=== PATIENT | female | born 1955 | race African-American/Black ===

== ENCOUNTER 2016-06-02 14:47 | Inpatient (IN) ==
[2016-06-02] MEDS ORDERED: SULFAMETHOX/TRIMETHOPRIM 800-160 MG TABLET PO STA (14:57)
[2016-06-02] MEDS ORDERED: CLINDAMYCIN INJ 900 MG in PREMIX 1 EACH IV STA (14:57)
[2016-06-02] MEDS ORDERED: methylPREDNISolone SOD SUC 125 MG/2 ML VIAL IV STA (14:57)
[2016-06-02] MEDS ORDERED: ACETAMINOPHEN/CODEINE 300-30 MG TABLET PO STA (14:57)
--- NOTE | 2016-06-02 15:02 | Emergency Department Note ---
Arrival - Arrival Chief Complaint: Extremity Problem Stated Complaint: bilateral leg pain ED Nursing Triage Note: c/o bilateral lower leg pain started about a year ago patient did not go to dialysis yesterday Mode of Arrival: Stretcher Limitations: No Limitations Source: Patient, Family Time Seen by Provider: 06/02/16 14:57 - History of Present Illness HPI Narrative: This 60-year-old black female chronic dialysis patient who dialyzes Wednesday presents with complaints of lower leg pain lesions with weeping ankles that are painful red and warm. The patient states this has been an evolving problem for several weeks and despite efforts to keep fluid off with dialysis, things have not gone as well as expected. The patient denies chills, fever, or chest pain but does complain of mild dyspnea with orthopnea and PND. She was to dialyze today but did not make it because of her legs. Onset (ago): week(s) (Patient presents several weeks post onset of symptoms) Allergies/Adverse Reactions: Allergies Allergy/AdvReac Type Severity Reaction Status Date / Time No Known Allergies Allergy Verified 03/27/16 17:01 Review of System - Review of System 12 point system: reviewed and no additional remarkable complaints except as stated - Review of System Constitutional: Present: as per HPI Respiratory: Present: as per HPI Cardiovascular: Present: as per HPI Musculoskeletal: Present: as per HPI Skin: Present: as per HPI Medical,Surgical,& Family Hx - Medical History Cardio: History of: Hypertension, Pacemaker Endocrine: History of: Diabetes Mellitus (NIDDM) Renal: History of: Dialysis, Renal Failure, Renal Problems (HD pt.) - Social History Smoking Status: Current every day smoker Exam Physical Examination: GENERAL: Chronically ill-appearing black female in no acute distress. HEENT: Normocephalic. No trauma. Moist mucous membranes. EOMI. PERRLA. ENT NML NECK: Supple. No adenopathy. JVD to the angle of the jaw at 45. CARDIAC: Regular. No murmurs. Heart rate 74 CHEST: Clear to auscultation. No respiratory distress. O2 sat 95% ABDOMEN: Soft. Nontender. Active bowel sounds. EXTREMITIES: No trauma. Normal ROM. No pedal edema. Right upper extremity fistula with good thrill. SKIN: No diaphoresis. No rash. Bilateral stasis dermatitis with cellulitis complicating vertical splits in the skin with purulent exudate and associated red tender swollen dripping palisades NEURO: Alert. Neuro intact. No focal deficits. Vital Signs: Vital Signs Temperature 99.3 F 06/02/16 14:54 Pulse Rate 65 06/02/16 16:45 Respiratory Rate 18 06/02/16 16:45 Blood Pressure 186/77 06/02/16 16:45 O2 Sat by Pulse Oximetry 95 06/02/16 14:48 Course - Reevaluation(s) Reevaluation #1: Discussed with patient need for hospitalization overnight for dialysis and further antibiotic therapy of stasis cellulitis and treatment of congestive failure with rule out of any cardiac ischemia - Consultations Consultation #1: Discussed with hospitalist service who will admit for further evaluation treatment. Results - Labs CBC & BMP: 06/02/16 15:04 06/02/16 15:04 Labs: I reviewed the laboratory noted the borderline white blood cell count and obviously elevated BUN and creatinine further complicated by mildly elevated potassium, bump in troponin and, and greatly elevated BNP - Diagnostic Findings Procedure: Chest x-ray: image reviewed by me, report reviewed by me ( Cardiomegaly with pulmonary venous hypertension and incipient failure, pacemaker noted), Ultrasound: image reviewed by me, report reviewed by me ( Lower extremity ultrasounds bilaterally reveal no DVT) Disposition Clinical Impression: Stasis cellulitis, Dialysis dependent renal failure, Congestive heart failure, Abnormal cardiac enzymes Case discussed with: patient, patient's family Disposition: Still a Patient Condition: Guarded Time of Disposition: 16:58
[2016-06-02] MEDS ORDERED: SULFAMETHOX/TRIMETHOPRIM 800-160 MG TABLET ONE (15:08)
[2016-06-02] MEDS ORDERED: methylPREDNISolone SOD SUC 125 MG/2 ML VIAL ONE (15:08)
[2016-06-02] MEDS ORDERED: ACETAMINOPHEN/CODEINE 300-30 MG TABLET ONE (15:08)
[2016-06-02] MEDS ORDERED: CLINDAMYCIN INJ 50 ML IV ONE (15:08)
[2016-06-02 15:21] LABS: Basophils # 0.1 10*3/uL (0.0-0.2); Basophils % 0.5 % (0.0-0.8); Eosinophils # 0.4 10*3/uL (0.0-0.87); Eosinophils % 3.5 % (0.00-10.9); Hemoglobin 10.3 GM/DL (12.0-16.0); Immature Granulocytes % 0.6 %; Immature Granulocytes Absolute 0.07 #; Lymphocytes # 0.9 10*3/uL (1.4-4.0); Lymphocytes % 7.7 % (21.3-54.2); Mean Corpuscular HGB Conc 32.2 GM/DL (32-36); Mean Corpuscular Hemoglobin 27 PG (27-34); Mean Corpuscular Volume 83.6 FL (87-102); Mean Platelet Volume 10.5 FL (9.6-12.0); Monocytes # 1.3 10*3/uL (0.11-0.8); Neutrophils # 9.1 10*3/uL (1.4-7.4); Neutrophils % 76.7 % (38.7-73.9); Platelet Count 144 T/CUMM (130-400); Red Blood Count 3.83 MC/CUMM (3.8-5.5); Red Cell Distribution Width 18.1 % (9.3-17.3); White Blood Count 11.9 T/CUMM (4-12)
[2016-06-02 15:33] LABS: INR 1.2; PT Patient Result 12.7 SECS
--- NOTE | 2016-06-02 15:48 | XRay Report ---
XR chest 1V portable Indication: Shortness of breath. Chest one view: Comparison 10/06/2013. Dialysis catheter has been removed. Cardiomegaly, pacemaker device, calcified atheromatous disease and elevated right hemidiaphragm are stable. No focal infiltrates are shown. There is increased pulmonary vascular congestion centrally, although not as severe as prior. Pleural spaces are clear. Impression: Mild CHF, not as severe as the previous exam. PROCEDURE INTERPRETED AT [facility] DEPARTMENT OF RADIOLOGY Final Report Signed by: Ángel Yang M.D.
[2016-06-02 15:56] LABS: Alanine Aminotransferase 22 U/L (13-56); Albumin 3.2 G/DL (3.4-5.0); Alkaline Phosphatase 78 U/L (45-117); Aspartate Amino Transferase 31 U/L (0-37); Blood Urea Nitrogen 87 MG/DL (7-18); Calcium 8.6 MG/DL (8.5-10.1); Glucose 74 MG/DL (74-106); Osmolality,Calculated 298.8 MOS/KG (273-304); Potassium 5.4 MMOL/L (3.5-5.1); Sodium 137 MMOL/L (136-145); Total Protein 7.6 G/DL (6.4-8.3)
--- NOTE | 2016-06-02 16:38 | Ultrasound Report ---
US venous doppler LE BI Indication: Leg pain. BILATERAL LOWER EXTREMITY VENOUS ULTRASOUND Comparison: None Findings: Graded grayscale compression, color Doppler and pulsed Doppler ultrasound evaluation of the venous structures performed. Normal compressibility, augmentation and color saturation is present within bilateral common femoral, superficial femoral, popliteal and proximal greater saphenous veins. Impression: No evidence of DVT either lower extremity. PROCEDURE INTERPRETED AT [facility] DEPARTMENT OF RADIOLOGY Final Report Signed by: Ángel Yang M.D.
[2016-06-02] MEDS ORDERED: ONDANSETRON 4 MG/2 ML VIAL IV PRN (17:05)
[2016-06-02] MEDS ORDERED: DOCUSATE SODIUM 100 MG CAPSULE PO PRN (17:05)
[2016-06-02] MEDS ORDERED: ACETAMINOPHEN 325 MG TABLET PO PRN (17:05)
--- NOTE | 2016-06-02 17:31 | Hospitalist History & Physical ---
Assessment and Plan (1) Acute renal failure Status: Acute Assessment and plan: Admit to monitored bed. Consult renal. Dialyze tomorrow. Monitor labs in am. Current Visit: Yes (2) Stasis dermatitis of both legs Status: Acute Assessment and plan: Doppler studies performed. Consult wound care. Current Visit: Yes (3) Elevated troponin Status: Acute Assessment and plan: Possibly secondary to kidney failure. Will repeat in am. Current Visit: Yes (4) Heart failure Status: Chronic Current Visit: Yes History of Present Illness Chief complaint: bilateral leg pain History of present illness: Ms. Robison is a 60 yr old black female patient that presented to the ED today with complaints of bilateral lower leg pain lesions and weeping ankles that are painful red and warm. Pt. also has area to right thigh that is reddened and warm. The pt. denies fever, chills, or chest pain but does complain of shortness of breath with activity. Pt reports that the issues with her legs have caused her to not be able to ambulate freely. Pt. resides alone and states that she doesnt have any help. Pt has a past medical history of CHF, renal failure, hypertension, diabetes, and a pacemaker. Pt. states she incorrectly told the MD that she dialyses T, Th, S - she actually goes MWF and she missed yesterday. BUN/creatinine are elevated 87/10.5. The patient will be admitted to the hospitalist program for further evaluation and treatment. Allergies Allergy/AdvReac Type Severity Reaction Status Date / Time No Known Allergies Allergy Verified 03/27/16 17:01 Medical,Surgical,& Family Hx - Medical History Cardio: History of: Hypertension, Pacemaker Endocrine: History of: Diabetes Mellitus (NIDDM) Renal: History of: Dialysis, Renal Failure, Renal Problems (HD pt.) - Social History Smoking Status: Current every day smoker - Constitutional Constitutional: Absent: chills, fever(s) - EENT Eyes: Present: loss of vision Ears: Absent: decreased hearing Nose, mouth and throat: Absent: headache(s) - Cardiovascular Cardiovascular: Absent: diaphoresis - Respiratory Respiratory: Present: dyspnea on exertion. Absent: cough - Gastrointestinal Gastrointestinal: Absent: abdominal pain, change in bowel habits, nausea, vomiting - Genitourinary Genitourinary: Absent: difficulty urinating - Musculoskeletal Musculoskeletal: Present: limited range of motion - Neurological Neurological: Present: confusion, convulsions. Absent: dizziness, numbness - Psychiatric Psychiatric: Present: confusion Exam - Constitutional Vitals: Period Temp Pulse Resp BP Sys/Spencer Pulse Ox Last 24 Hr 99.3 F-99.3 F 65-74 18-20 186-198/71-77 95 General appearance: normal weight, no acute distress, over weight - Head Head exam: Present: normal inspection, normocephalic - Eye Eye exam: Present: EOMI Pupils: Present: ISIDRO - Respiratory Respiratory exam: Present: clear to auscultation bilaterally - Cardiovascular Cardiovascular exam: Present: regular rate and rhythm, other (pt has pacemaker) - GI/Abdominal GI/Abdominal exam: Present: normal bowel sounds, soft, other - Neurological Exam Neurological exam: Present: alert, oriented X3, abnormal gait - Psychiatric Psychiatric exam: Present: normal affect, normal mood - Skin Skin exam: Present: normal color, warm, dry Results - Labs CBC & BMP: 06/02/16 15:04 06/02/16 15:04 Lab Results: I have reviewed the past 24 hour labs
[2016-06-02] MEDS ORDERED: GLUCAGON 1 MG VIAL IM PRN (17:35)
[2016-06-02] MEDS ORDERED: DEXTROSE 50% 25 GM/50 ML VIAL IV PRN (17:35)
[2016-06-02] MEDS: CLINDAMYCIN INJ 900 MG in PREMIX 1 EACH IV SCH (22:34)
[2016-06-02] MEDS: INSULIN LISPRO 100 UNIT/ML SUBCUT SCH (22:35)
[2016-06-03 03:35] LABS: Basophils % 0.1 % (0.0-0.8); Hematocrit 32.3 VOL% (35.7-47.0); Hemoglobin 10.2 GM/DL (12.0-16.0); Immature Granulocytes % 0.6 %; Immature Granulocytes Absolute 0.05 #; Lymphocytes # 0.4 10*3/uL (1.4-4.0); Lymphocytes % 4.1 % (21.3-54.2); Mean Corpuscular HGB Conc 31.6 GM/DL (32-36); Mean Corpuscular Hemoglobin 27 PG (27-34); Mean Corpuscular Volume 84.1 FL (87-102); Mean Platelet Volume 10.5 FL (9.6-12.0); Monocytes # 0.2 10*3/uL (0.11-0.8); Neutrophils % 93.2 % (38.7-73.9); Platelet Count 144 T/CUMM (130-400); Red Blood Count 3.84 MC/CUMM (3.8-5.5); Red Cell Distribution Width 18.4 % (9.3-17.3); White Blood Count 8.5 T/CUMM (4-12)
[2016-06-03 04:06] LABS: Lymphocytes 2 % (20-55); Segmented Neutrophils 97 % (50-85); Total Cells Counted 100
[2016-06-03 04:08] LABS: Platelet Estimate Adequate; Target Cells Few
[2016-06-03 04:13] LABS: Calcium 8.4 MG/DL (8.5-10.1); Osmolality,Calculated 304.8 MOS/KG (273-304); Potassium 5.9 MMOL/L (3.5-5.1); Risk Ratio 1.93; VLDL CHOLESTEROL 18.8 MG/DL
[2016-06-03 04:15] LABS: Troponin I Only 0.046 NG/ML (0.00-0.045)
--- NOTE | 2016-06-03 08:57 | Nephrology Consult Note ---
History of Present Illness Chief complaint: ESRD on CHD, c/o edema and SOB History of present illness: Ms. Robison is a 60 year old female with ESRD on CHD at [facility] on MWF. Last HD on Wednesday due to "I can't remember what days I dialyze, confused for a week". EDW 60kg via right upper arm AV fistula. Home Medications Medication Instructions Recorded Confirmed Type Aspirin EC Tab 325 mg PO DAILY 06/02/16 06/02/16 History Cetirizine HCl 10 mg PO DAILY 06/02/16 06/02/16 History Cetirizine Tab [ZyrTEC Tab] 10 mg PO DAILY 06/02/16 06/02/16 History Ferrous Sulfate 325 mg PO DAILY 06/02/16 06/02/16 History Folic Acid/Vit B Complex and C 0.8 mg PO DAILY 06/02/16 06/02/16 History [Nephro-Lyssa Tablet] Furosemide Tab [Lasix Tab] 40 mg PO BID 06/02/16 06/02/16 History Hydrocodone/Acetaminophen 1 each PO Q12HR 06/02/16 06/02/16 History [Hydrocodon-Acetaminophn 10-325] Metoclopramide HCl 5 mg PO ACHS 06/02/16 06/02/16 History Morphine Sulfate [Morphine Sulfate 15 mg PO Q12HR 06/02/16 06/02/16 History ER] Zolpidem Tartrate 5 mg PO BEDTIME PRN 06/02/16 06/02/16 History buPROPion HCl [Bupropion HCl Sr] 150 mg PO BID 06/02/16 06/02/16 History hydrALAZINE TAB [Apresoline Tab] 25 mg PO BID 06/02/16 06/02/16 History hydrOXYzine HCl [Hydroxyzine HCl] 25 mg PO BID PRN 06/02/16 06/02/16 History traZODone [Desyrel] 100 mg PO BEDTIME 06/02/16 06/02/16 History Allergies Allergy/AdvReac Type Severity Reaction Status Date / Time No Known Allergies Allergy Verified 03/27/16 17:01 Medical,Surgical,& Family Hx - Medical History Cardio: History of: Hypertension, Pacemaker Neurology: History of: Cerebrovascular Accident Endocrine: History of: Diabetes Mellitus (NIDDM) Renal: History of: Dialysis, Renal Failure, Renal Problems (HD pt.) - Social History Smoking Status: Current every day smoker Frequency of Alcohol Use: None Type of Drug Use: None Exam - Vital Signs Vital signs: Period Temp Pulse Resp BP Sys/Spencer Pulse Ox Last 24 Hr 96.7 F-99.9 F 60-97 16-20 162-187/58-79 90-97 - General Appearance General appearance: well-developed, chronically ill EENT: ATNC, PERRL, mucous membranes moist, hearing intact, vision intact Neck: no JVD, no carotid bruit Respiratory: no kyphosis, rales Cardiology: no murmurs, no rub, edema Gastrointestinal: normoactive bowel sounds, no tenderness, no guarding Integumentary: no rash, warm and dry Neurologic: no focal deficit, no asterixis, alert and oriented x3 Musculoskeletal: no deformities, no erythema Psychiatric: mood/affect appropriate, cooperative Results - Labs CBC & BMP: 06/03/16 03:14 06/03/16 03:14 Assessment and Plan (1) ESRD (end stage renal disease) on dialysis Problem details: volume overloaded due to noncompliance with hemodialysis. Status: Acute Assessment and plan: CHD today, 4 hrs, UF 4-5L as tolerated by hemodynamics. Current Visit: Yes
[2016-06-03] MEDS: INSULIN LISPRO 100 UNIT/ML SUBCUT SCH ×4 (09:01→21:02)
[2016-06-03] MEDS: PANTOPRAZOLE 40 MG TABLET PO SCH (09:01)
[2016-06-03] MEDS: CLINDAMYCIN INJ 900 MG in PREMIX 1 EACH IV SCH ×3 (09:02→23:45)
[2016-06-03 10:49] LABS: Hepatitis B Surface Ab Result Negative; Hepatitis B Surface Ag Quant < 0.10 Index; Hepatitis B Surface Ag Result Negative (Negative)
--- NOTE | 2016-06-03 15:32 | Hospitalist Progress Note ---
Assessment and Plan - Time spent with patient Time spent with patient: Greater than 30 minutes (1) ESRD (end stage renal disease) on dialysis Problem details: volume overloaded due to noncompliance with hemodialysis. Status: Acute Assessment and plan: Continue dialysis. Current Visit: Yes (2) Elevated troponin Status: Acute Assessment and plan: No chest pain. Likely due to end-stage renal disease. Current Visit: Yes (3) Cellulitis Status: Acute Assessment and plan: Continue antibiotics. Current Visit: Yes (4) Heart failure Status: Acute Assessment and plan: Stable. Current Visit: Yes Hospitalist: Subjective Interval history: Low-grade fever. Admitted with lower extremity cellulitis. End-stage renal disease. Currently she states she feels much better. Exam - Constitutional Vitals: Period Temp Pulse Resp BP Sys/Spencer Pulse Ox Last 24 Hr 96.7 F-99.9 F 60-97 16-20 159-187/58-79 90-98 General appearance: no acute distress - Head Head exam: Present: normocephalic, atraumatic - Eye Eye exam: Present: EOMI Pupils: Present: ISIDRO - ENT ENT exam: Present: normal exam - Neck Neck exam: Present: normal inspection - Respiratory Respiratory exam: Present: clear to auscultation bilaterally. Absent: rhonchi, wheezes - Cardiovascular Cardiovascular exam: Present: regular rate and rhythm. Absent: gallop, rubs, systolic murmur - GI/Abdominal GI/Abdominal exam: Present: normal bowel sounds, soft. Absent: distended, firm , guarding, tenderness, rebound - Extremities Exam Extremities exam: Present: other (Lower extremity reveals chronic changes with thickened skin. No overt evidence of cellulitis.). Absent: calf tenderness, edema Results - Labs CBC & BMP: 06/03/16 03:14 06/03/16 03:14 Lab Results: I have reviewed the past 24 hour labs
[2016-06-04] MEDS: CLINDAMYCIN INJ 900 MG in PREMIX 1 EACH IV SCH ×3 (06:42→23:16)
--- NOTE | 2016-06-04 08:29 | Nephrology Progress Note ---
Nephrology - PN: Subj Interval history: Pt states her breathing is much better after HD yesterday. SaO2 improved to 97% on RA afterward but now down again to low 90s this am. BLE edema improved. She denies pain. Exam (PN)-Nephrology - Vital Signs Vital signs: Period Temp Pulse Resp BP Sys/Spencer Pulse Ox Last 24 Hr 96.5 F-99.7 F 60-82 16-18 103-169/60-85 91-99 - General Appearance General appearance: well-developed, chronically ill EENT: ATNC, PERRL Neck: no JVD, no thyromegaly Respiratory: no kyphosis, clear Cardiology: no murmurs, no rub, edema Gastrointestinal: normoactive bowel sounds, no tenderness Integumentary: no rash, warm and dry Neurologic: no focal deficit, no asterixis, alert and oriented x3 Musculoskeletal: no deformities, no erythema Psychiatric: mood/affect appropriate, cooperative - Lab 06/03/16 03:14 06/03/16 03:14 Most recent lab results Calcium 8.4 MG/DL (8.5-10.1) L 06/03/16 03:14 Assessment and Plan (1) ESRD (end stage renal disease) on dialysis Problem details: volume overload improved but still up by exam. Status: Acute Assessment and plan: Pure ultrafiltration today. One hour, 1.5L UF. Current Visit: Yes
[2016-06-04] MEDS: INSULIN LISPRO 100 UNIT/ML SUBCUT SCH ×4 (08:41→23:16)
[2016-06-04] MEDS: PANTOPRAZOLE 40 MG TABLET PO SCH (08:42)
[2016-06-04 11:14] LABS: Apearance,Urine Slightly Hazy (Clear); Bilirubin,Urine Negative (Negative); Blood, Urine Moderate mg/dL (Negative); Glucose,Urine (UA) Negative (Negative); Ketones,Urine Negative (Negative); Mucus,Urine Occasional /LPF (Occasional); Nitrite,Urine Negative (Negative); Protein,Urine >=500 MG/DL; RBC,Urine 57 /HPF (0-4); Squamous Epithelial Cell,Urine Occasional /HPF (0-10); Urine Color Amber (Yellow); Urine Specific Gravity 1.017 (1.001-1.035); Urine Urobilinogen < 2.0 EU/DL (0.2-1.0); WBC,Urine 22 /HPF (0-6)
--- NOTE | 2016-06-04 13:25 | Hospitalist Progress Note ---
Assessment and Plan - Time spent with patient Time spent with patient: Greater than 30 minutes (1) ESRD (end stage renal disease) on dialysis Problem details: volume overload improved but still up by exam. Status: Acute Assessment and plan: Continue dialysis. Current Visit: Yes (2) Elevated troponin Status: Acute Assessment and plan: No chest pain. Likely due to end-stage renal disease. Current Visit: Yes (3) Cellulitis Status: Acute Assessment and plan: Continue antibiotics. Current Visit: Yes (4) Heart failure Status: Acute Assessment and plan: Stable. Current Visit: Yes Hospitalist: Subjective Interval history: No complaints. No overnight events. Exam - Constitutional Vitals: Period Temp Pulse Resp BP Sys/Spencer Pulse Ox Last 24 Hr 96.5 F-99.7 F 60-82 16-20 103-169/55-85 91-99 General appearance: no acute distress - Head Head exam: Present: normocephalic, atraumatic - Eye Eye exam: Present: EOMI Pupils: Present: ISIDRO - ENT ENT exam: Present: normal exam - Neck Neck exam: Present: normal inspection - Respiratory Respiratory exam: Present: clear to auscultation bilaterally. Absent: rhonchi, wheezes - Cardiovascular Cardiovascular exam: Present: regular rate and rhythm. Absent: gallop, rubs, systolic murmur - GI/Abdominal GI/Abdominal exam: Present: normal bowel sounds, soft. Absent: distended, firm , guarding, tenderness, rebound - Extremities Exam Extremities exam: Present: normal inspection. Absent: calf tenderness, edema Results - Labs CBC & BMP: 06/03/16 03:14 06/03/16 03:14 Lab Results: I have reviewed the past 24 hour labs
[2016-06-05] MEDS: CLINDAMYCIN INJ 900 MG in PREMIX 1 EACH IV SCH ×2 (06:37→16:20)
[2016-06-05 07:48] LABS: Basophils % 0.1 % (0.0-0.8); Eosinophils # 0.5 10*3/uL (0.0-0.87); Eosinophils % 6.1 % (0.00-10.9); Hematocrit 32.7 VOL% (35.7-47.0); Hemoglobin 10.8 GM/DL (12.0-16.0); Immature Granulocytes % 0.5 %; Immature Granulocytes Absolute 0.04 #; Lymphocytes # 0.7 10*3/uL (1.4-4.0); Lymphocytes % 9.6 % (21.3-54.2); Mean Corpuscular Hemoglobin 27 PG (27-34); Mean Platelet Volume 10.8 FL (9.6-12.0); Monocytes # 0.7 10*3/uL (0.11-0.8); Monocytes % 9.2 % (1.7-12.7); Neutrophils # 5.6 10*3/uL (1.4-7.4); Neutrophils % 74.5 % (38.7-73.9); Platelet Count 166 T/CUMM (130-400); Red Blood Count 3.99 MC/CUMM (3.8-5.5); Red Cell Distribution Width 17.5 % (9.3-17.3); White Blood Count 7.5 T/CUMM (4-12)
[2016-06-05 08:22] LABS: Calcium 7.5 MG/DL (8.5-10.1); Osmolality,Calculated 284.4 MOS/KG (273-304); Potassium 5.2 MMOL/L (3.5-5.1)
[2016-06-05] MEDS: INSULIN LISPRO 100 UNIT/ML SUBCUT SCH ×3 (08:34→17:35)
[2016-06-05] MEDS: PANTOPRAZOLE 40 MG TABLET PO SCH (08:49)
--- NOTE | 2016-06-05 09:16 | Nephrology Progress Note ---
Nephrology - PN: Subj Interval history: Pt sitting on side of bed smiling on am rounds. SaO2 100% on RA. Tolerated 1.5L pure ultrafiltration yesterday over one hour. Denies pain/SOB. Exam (PN)-Nephrology - Vital Signs Vital signs: Period Temp Pulse Resp BP Sys/Spencer Pulse Ox Last 24 Hr 96.8 F-98.1 F 63-74 18-20 151-183/66-88 90-100 - General Appearance General appearance: well-developed, well-nourished, chronically ill EENT: ATNC, PERRL, mucous membranes moist, hearing intact, vision intact Neck: no JVD, no carotid bruit Respiratory: no kyphosis, clear Cardiology: no murmurs, no rub, edema (improved) Gastrointestinal: normoactive bowel sounds, no tenderness Integumentary: no rash, warm and dry Neurologic: no focal deficit, no asterixis, alert and oriented x3 Musculoskeletal: no deformities, no erythema Psychiatric: mood/affect appropriate, cooperative - Lab 06/05/16 07:40 06/05/16 07:40 Most recent lab results Calcium 7.5 MG/DL (8.5-10.1) L 06/05/16 07:40 Assessment and Plan (1) ESRD (end stage renal disease) on dialysis Problem details: Euvolemic by exam. Status: Acute Assessment and plan: Routine CHD today. Establish new EDW and ensure this is relayed to Ms Robison' s outpt HD unit if she is discharged over the weekend. Stable for d/c after routine CHD today from nephrology standpoint with wound care. Current Visit: Yes
[2016-06-05 11:52] VITALS: BP 140/66
--- NOTE | 2016-06-05 12:50 | Discharge Summary ---
Hospital Course - Hospital Course Hospital Course: Ms. Robison was admitted for management of lower extremity cellulitis. She was initiated on clindamycin with adequate response. Wound care had evaluated the patient. Lower extremity Dopplers were negative. Nephrology was consulted for continuation of hemodialysis. By discharge she had met maximum benefit of hospitalization. I spent 37 minutes coordinating this discharge. - Time spent with patient Time with patient DS: Greater than 30 minutes Diagnosis - Discharge Diagnosis (1) ESRD (end stage renal disease) on dialysis Status: Acute (2) Elevated troponin Status: Acute (3) Cellulitis Status: Acute (4) Heart failure Status: Acute Discharge Plan - Discharge Data Disposition: Disch To Home/Self Care Condition at Discharge: Stable Discharge Diet: advance to your usual diet Activity: resume usual activities as tolerated - Discharge Medications New Clindamycin HCl [Clindamycin Cap] 600 mg PO Q8HR #30 capsule Continue buPROPion HCl [Bupropion HCl Sr] 150 mg PO BID Furosemide Tab [Lasix Tab] 40 mg PO BID Cetirizine Tab [ZyrTEC Tab] 10 mg PO DAILY Aspirin EC Tab 325 mg PO DAILY traZODone [Desyrel] 100 mg PO BEDTIME Cetirizine HCl 10 mg PO DAILY Morphine Sulfate [Morphine Sulfate ER] 15 mg PO Q12HR Folic Acid/Vit B Complex and C [Nephro-Lyssa Tablet] 0.8 mg PO DAILY Zolpidem Tartrate 5 mg PO BEDTIME PRN PRN Reason: Restlessness Metoclopramide HCl 5 mg PO ACHS Hydrocodone/Acetaminophen [Hydrocodon-Acetaminophn 10-325] 1 each PO Q12HR Ferrous Sulfate 325 mg PO DAILY hydrALAZINE TAB [Apresoline Tab] 25 mg PO BID hydrOXYzine HCl [Hydroxyzine HCl] 25 mg PO BID PRN PRN Reason: Itching - Follow Up or Referral - Forms/Instructions Exam - Constitutional Vitals: Period Temp Pulse Resp BP Sys/Spencer Pulse Ox Last 24 Hr 96.8 F-98.1 F 62-69 18-20 140-183/66-88 90-100 General appearance: normal weight, no acute distress - Head Head exam: Present: normal inspection, normocephalic - Eye Eye exam: Present: EOMI Pupils: Present: ISIDRO - ENT ENT exam: Present: normal exam - Neck Neck exam: Present: normal inspection - Respiratory Respiratory exam: Present: clear to auscultation bilaterally. Absent: accessory muscle use, prolonged expiratory phase, wheezes - Cardiovascular Cardiovascular exam: Present: regular rate and rhythm. Absent: bradycardia, irregular rhythm, systolic murmur - GI/Abdominal GI/Abdominal exam: Present: normal bowel sounds - Extremities Exam Extremities exam: Present: normal inspection Discharge Results Procedures and tests throughout hospitalization: Pending Orders 06/03/16 18:38 Stool Culture Routine stool [C. Diff Toxins A & B] Routine 06/04/16 Urine Culture Routine Labs on day of discharge: Labs from last 24 hours 06/05/16 06/05/16 06/05/16 11:33 07:58 07:40 WBC RBC Hgb Hct MCV MCH MCHC RDW Plt Count MPV Neut % (Auto) Lymph % (Auto) Lares % (Auto) Eos % (Auto) Baso % (Auto) Neut # (Auto) Lymph # (Auto) Lares # (Auto) Eos # (Auto) Baso # (Auto) Immature Gran % Nucleated RBC % Immature Gran # Nucleated RBCs # Sodium 133 L Potassium 5.2 H Chloride 99 Carbon Dioxide 23 Anion Gap 16.2 H BUN 66 H Creatinine 8.00 H GFR Calculation 6 BUN/Creatinine Ratio 8.00 Glucose 101 POC Glucose 94 113 H Calculated Osmolality 284.4 Calcium 7.5 L 06/05/16 06/04/16 06/04/16 07:40 19:34 16:02 WBC 7.5 RBC 3.99 Hgb 10.8 L Hct 32.7 L MCV 82.0 L MCH 27 MCHC 33.0 RDW 17.5 H Plt Count 166 MPV 10.8 Neut % (Auto) 74.5 H Lymph % (Auto) 9.6 L Lares % (Auto) 9.2 Eos % (Auto) 6.1 Baso % (Auto) 0.1 Neut # (Auto) 5.6 Lymph # (Auto) 0.7 L Lares # (Auto) 0.7 Eos # (Auto) 0.5 Baso # (Auto) 0.0 Immature Gran % 0.5 Nucleated RBC % 0.0 Immature Gran # 0.04 Nucleated RBCs # 0.00 Sodium Potassium Chloride Carbon Dioxide Anion Gap BUN Creatinine GFR Calculation BUN/Creatinine Ratio Glucose POC Glucose 121 H 111 H Calculated Osmolality Calcium Preliminary micro results at discharge 04/13/17 Unknown Urine Culture - Preliminary Urine,Voided No Growth at 24 hours. DS: Provider Date of admission: 06/02/16 17:01 Primary care physician: . No PCP Attending physician on admission: Renetta Gonsales MD Consults: 06/02/16 17:30 Consult to Physician [CONS] Routine Comment: Consulting Provider: Gordon Moctezuma Jr. 06/02/16 18:11 Consult to Pharmacy [CONS] Routine Reason for Pharmacy Consult: Adjust Meds Renal Funct 06/02/16 18:21 Consult to Wound Care - [place] [CONS] Routine Reason for Wound Care: Wound Care Management Discharging clinician: Renetta Gonsales MD Expected date of discharge: 06/05/16
--- NOTE | 2016-06-05 13:18 | Dialysis Note ---
Dialysis Note - Dialysis Note Patient seen on hemodialysis, she is tolerating this well will continue her treatment unchanged.
[2016-06-05] MEDS ORDERED: hydrALAZINE 25 MG TABLET PO SCH (15:50)
[2016-06-05] MEDS ORDERED: HEPARIN 10,000 UNIT/10 ML VIAL IV PRN (16:06)
== END 2016-06-05 19:09 | disposition home or self-care (01) | DRG 291 ==
LOC: EDUNIT# → EDBD → N.ED 14:47 → N.TELEN 17:01
PROVIDERS: ADMIT Internal Medicine; ATTEND Internal Medicine

== ENCOUNTER 2016-08-15 22:29 | Inpatient (IN) ==
[2016-08-15] MEDS ORDERED: FUROSEMIDE 40 MG/4 ML VIAL IV STA (23:07)
[2016-08-15] MEDS ORDERED: HYDROmorphone 2 MG/1 ML VIAL IV STA (23:07)
[2016-08-15] MEDS ORDERED: ONDANSETRON 4 MG/2 ML VIAL IV STA (23:07)
[2016-08-15 23:22] LABS: Basophils % 0.5 % (0.0-0.8); Eosinophils # 0.2 10*3/uL (0.0-0.87); Eosinophils % 2.7 % (0.00-10.9); Hematocrit 37.6 VOL% (35.7-47.0); Hemoglobin 11.4 GM/DL (12.0-16.0); Immature Granulocytes % 0.9 %; Immature Granulocytes Absolute 0.07 #; Lymphocytes # 0.9 10*3/uL (1.4-4.0); Lymphocytes % 10.7 % (21.3-54.2); Mean Corpuscular HGB Conc 30.3 GM/DL (32-36); Mean Corpuscular Hemoglobin 29 PG (27-34); Mean Platelet Volume 13.3 FL (9.6-12.0); Monocytes # 0.4 10*3/uL (0.11-0.8); Monocytes % 4.6 % (1.7-12.7); Neutrophils # 6.6 10*3/uL (1.4-7.4); Neutrophils % 80.6 % (38.7-73.9); Platelet Count 164 T/CUMM (130-400); White Blood Count 8.2 T/CUMM (4-12)
[2016-08-15] MEDS ORDERED: ONDANSETRON 4 MG/2 ML VIAL ONE (23:26)
[2016-08-15] MEDS ORDERED: HYDROmorphone 2 MG/1 ML VIAL ONE (23:27)
[2016-08-15 23:34] LABS: INR 1.1; PT Patient Result 11.6 SECS; Partial Thromboplastin Time 30.3 SECS (0-40)
[2016-08-15 23:41] LABS: Alanine Aminotransferase 20 U/L (13-56); Albumin 3.3 G/DL (3.4-5.0); Alkaline Phosphatase 128 U/L (45-117); Aspartate Amino Transferase 40 U/L (0-37); Blood Urea Nitrogen 31 MG/DL (7-18); Calcium 9.7 MG/DL (8.5-10.1); Glucose 172 MG/DL (74-106); Osmolality,Calculated 291.3 MOS/KG (273-304); Potassium 4.1 MMOL/L (3.5-5.1); Sodium 141 MMOL/L (136-145); Total Protein 7.7 G/DL (6.4-8.3)
[2016-08-15 23:44] LABS: Troponin I Only 0.059 NG/ML (0.00-0.045)
--- NOTE | 2016-08-15 23:54 | Emergency Department Note ---
ISeth Hilary, am scribing for, and in the presence of, Anita Carey DO 23: 00. IAurelio Debra, DO, personally performed the services described in this documentation, ascribed by Umm Ann in my presence, and it is both accurate and complete 354 . Arrival - Arrival Chief Complaint: Shortness of Breath Stated Complaint: SOB ED Nursing Triage Note: C/O Shortness of breath/edema to body. Onset 3-4 days ago. Pt reports that she thought she needed dialysis so she waited until she dialyzed yesterday, but still didn't get any relief of the shortness of breath or edema. Mode of Arrival: Wheelchair Limitations: No Limitations Source: Patient, RN Notes Reviewed - History of Present Illness HPI Narrative: Pt is a 60 y/o black female presenting to the ED with c/o SOB which onset 3-4 days ago. She confirms SOB and bloating in her abdomen but denies chest pain. No other complaints or problems stated in the ED. Onset (ago): day(s) Consistency: constant Severity: mild Severity scale (1-10): 1 Quality: bloating Date of Last Menstrual Period: PM Allergies/Adverse Reactions: Allergies Allergy/AdvReac Type Severity Reaction Status Date / Time No Known Allergies Allergy Verified 03/27/16 17:01 Home Medications: Home Medications Medication Instructions Recorded Confirmed Type Aspirin EC Tab 325 mg PO DAILY 06/02/16 08/16/16 History Cetirizine HCl 10 mg PO DAILY 06/02/16 08/16/16 History Cetirizine Tab [ZyrTEC Tab] 10 mg PO DAILY 06/02/16 08/16/16 History Ferrous Sulfate 325 mg PO DAILY 06/02/16 08/16/16 History Folic Acid/Vit B Complex and C 0.8 mg PO DAILY 06/02/16 08/16/16 History [Nephro-Lyssa Tablet] Furosemide Tab [Lasix Tab] 40 mg PO BID 06/02/16 08/16/16 History Hydrocodone/Acetaminophen 1 each PO Q12HR 06/02/16 08/16/16 History [Hydrocodon-Acetaminophn 10-325] Metoclopramide HCl 5 mg PO ACHS 06/02/16 08/16/16 History Morphine Sulfate [Morphine Sulfate 15 mg PO Q12HR 06/02/16 08/16/16 History ER] Zolpidem Tartrate 5 mg PO BEDTIME PRN 06/02/16 08/16/16 History buPROPion HCl [Bupropion HCl Sr] 150 mg PO BID 06/02/16 08/16/16 History hydrALAZINE TAB [Apresoline Tab] 25 mg PO BID 06/02/16 08/16/16 History hydrOXYzine HCl [Hydroxyzine HCl] 25 mg PO BID PRN 06/02/16 08/16/16 History traZODone [Desyrel] 100 mg PO BEDTIME 06/02/16 08/16/16 History Review of System - Review of System 12 point system: reviewed and no additional remarkable complaints except as stated - Review of System Constitutional: Absent: chills, fever Respiratory: Present: respiratory distress (SOB) Cardiovascular: Absent: chest pain Gastrointestinal: Present: abdominal pain Medical,Surgical,& Family Hx - Medical History Cardio: History of: Hypertension, Pacemaker Neurology: History of: Cerebrovascular Accident Endocrine: History of: Diabetes Mellitus (NIDDM) Renal: History of: Dialysis, Renal Failure, Renal Problems (HD pt.) - Social History Smoking Status: Current some day smoker Frequency of Alcohol Use: None Type of Drug Use: None Exam Vital Signs: Vital Signs Temperature 97.9 F 08/17/16 07:41 Pulse Rate 65 08/17/16 07:41 Respiratory Rate 16 08/17/16 07:41 Blood Pressure 146/63 08/17/16 07:41 O2 Sat by Pulse Oximetry 95 08/17/16 07:41 - General General appearance: alert, in no apparent distress - Head Head exam: Present: atraumatic, normocephalic - Eye Eye exam: Present: normal appearance, PERRL, EOMI - ENT ENT exam: Present: mucous membranes moist, TM's normal bilaterally. Absent: mucous membranes dry - Neck Neck exam: Present: full ROM, trachea midline. Absent: tenderness - Chest Chest inspection: Present: symmetric chest wall rise. Absent: tenderness - Respiratory Respiratory exam: Absent: normal lung sounds bilaterally (decreased breath sounds), respiratory distress - Cardiovascular Cardiovascular exam: Present: regular rate, normal rhythm, normal heart sounds, murmur (midsystolic ). Absent: rubs, gallop - Abdominal Exam Abdominal exam: Present: soft, tenderness (mild,diffused), normal bowel sounds. Absent: distention - Extremities Exam Extremities exam: Present: full ROM. Absent: tenderness - Back Exam Back exam: Present: full ROM. Absent: tenderness - Neurological Exam Neurological exam: Present: alert, oriented X3, CN II-XII intact. Absent: motor sensory deficit - Psychiatric Psychiatric exam: Present: normal affect, normal mood - Skin Skin exam: Present: warm, dry, intact, normal color. Absent: rash Results - Labs CBC & BMP: 08/17/16 03:21 08/17/16 03:21 Lab Results: I have reviewed the patients labs Labs: Laboratory Tests 08/15/16 08/15/16 08/15/16 23:05 23:05 23:05 WBC 8.2 RBC 4.00 Hgb 11.4 L MCHC 30.3 L Plt Count 164 MPV 13.3 H Neut % (Auto) 80.6 H Lymph % (Auto) 10.7 L Lymph # (Auto) 0.9 L INR 1.1 PT Patient/Control Mix 11.6 Circ Anticoag PTT 30.3 Sodium 141 Potassium 4.1 Chloride 101 Carbon Dioxide 32 BUN 31 H Creatinine 4.80 H Glucose 172 H AST 40 H Alkaline Phosphatase 128 H Troponin I 0.059 H B-Natriuretic Peptide Total Protein 7.7 Albumin 3.3 L Globulin 4.4 H Albumin/Globulin Ratio 0.7 L 08/15/16 23:05 WBC RBC Hgb MCHC Plt Count MPV Neut % (Auto) Lymph % (Auto) Lymph # (Auto) INR PT Patient/Control Mix Circ Anticoag PTT Sodium Potassium Chloride Carbon Dioxide BUN Creatinine Glucose AST Alkaline Phosphatase Troponin I B-Natriuretic Peptide > 5000 H Total Protein Albumin Globulin Albumin/Globulin Ratio - Diagnostic Findings Procedure: Chest x-ray: report reviewed by me (chf) Disposition Clinical Impression: Congestive heart failure Case discussed with: patient Disposition: Still a Patient
[2016-08-16] MEDS ORDERED: FUROSEMIDE 40 MG/4 ML VIAL IV STA (00:50)
[2016-08-16] MEDS ORDERED: hydrOXYzine HCL 25 MG TABLET PO PRN (02:27)
[2016-08-16] MEDS ORDERED: ACETAMINOPHEN 325 MG TABLET PO PRN (02:28)
[2016-08-16] MEDS ORDERED: GLUCAGON 1 MG VIAL IM PRN (02:28)
[2016-08-16] MEDS ORDERED: ONDANSETRON 4 MG/2 ML VIAL IV PRN (02:28)
[2016-08-16] MEDS ORDERED: DEXTROSE 50% 25 GM/50 ML VIAL IV PRN (02:28)
[2016-08-16] MEDS ORDERED: ALBUTEROL/IPRATROPIUM 3 ML NEB RESP TX PRN (02:32)
--- NOTE | 2016-08-16 02:35 | Hospitalist History & Physical ---
Assessment and Plan (1) Acute CHF Status: Acute Current Visit: Yes Qualifiers: Congestive heart failure type: unspecified congestive heart failure type Qualified Code(s): I50.9 - Heart failure, unspecified (2) Hypertension Status: Acute Current Visit: Yes Qualifiers: Hypertension type: essential hypertension Qualified Code(s): I10 - Essential (primary) hypertension (3) Type 2 diabetes mellitus Status: Acute Current Visit: Yes Qualifiers: Diabetes mellitus complication status: with unspecified complications Diabetes mellitus penitentiary insulin use: without penitentiary use Qualified Code( s): E11.8 - Type 2 diabetes mellitus with unspecified complications (4) ESRD (end stage renal disease) on dialysis Status: Chronic Assessment and plan: Plan: Chest x-ray consistent with cardiomegaly, and exam seem consistent with CHF. She has a history of tricuspid regurgitation. Will obtain echo to determine LV function Consult nephrology for dialysis on Wednesday Resume antihypertensives, may add additional medication as her blood pressure is suboptimal. Current Visit: Yes History of Present Illness Chief complaint: sob, worsening edema x2 days History of present illness: Ms. Robison is a 60 year old female with end-stage renal disease on hemodialysis Wednesday via right upper extremity AV fistula, hypertension, pacemaker, who is here with with a few days worsening SOB. Worse with exertion, she thought "pulling fluid off at dialysis," would make her feel better however she remains short of breath despite dialysis yesterday. She denies chest pain, fever, chills, cough, or hemoptysis. She makes very little if any urine. She also reports worsening bilateral lower extremity edema as well as abdominal bloating. She denies abdominal pain, constipation or diarrhea. Overall her symptoms have been constant, and worsening in intensity. Home Medications Medication Instructions Recorded Confirmed Type Aspirin EC Tab 325 mg PO DAILY 06/02/16 08/16/16 History Cetirizine HCl 10 mg PO DAILY 06/02/16 08/16/16 History Cetirizine Tab [ZyrTEC Tab] 10 mg PO DAILY 06/02/16 08/16/16 History Ferrous Sulfate 325 mg PO DAILY 06/02/16 08/16/16 History Folic Acid/Vit B Complex and C 0.8 mg PO DAILY 06/02/16 08/16/16 History [Nephro-Lyssa Tablet] Furosemide Tab [Lasix Tab] 40 mg PO BID 06/02/16 08/16/16 History Hydrocodone/Acetaminophen 1 each PO Q12HR 06/02/16 08/16/16 History [Hydrocodon-Acetaminophn 10-325] Metoclopramide HCl 5 mg PO ACHS 06/02/16 08/16/16 History Morphine Sulfate [Morphine Sulfate 15 mg PO Q12HR 06/02/16 08/16/16 History ER] Zolpidem Tartrate 5 mg PO BEDTIME PRN 06/02/16 08/16/16 History buPROPion HCl [Bupropion HCl Sr] 150 mg PO BID 06/02/16 08/16/16 History hydrALAZINE TAB [Apresoline Tab] 25 mg PO BID 06/02/16 08/16/16 History hydrOXYzine HCl [Hydroxyzine HCl] 25 mg PO BID PRN 06/02/16 08/16/16 History traZODone [Desyrel] 100 mg PO BEDTIME 06/02/16 08/16/16 History Clindamycin HCl [Clindamycin Cap] 600 mg PO Q8HR #30 capsule 06/05/16 08/16/16 Rx Allergies Allergy/AdvReac Type Severity Reaction Status Date / Time No Known Allergies Allergy Verified 03/27/16 17:01 Medical,Surgical,& Family Hx - Medical History Cardio: History of: Hypertension, Pacemaker Neurology: History of: Cerebrovascular Accident Endocrine: History of: Diabetes Mellitus (NIDDM) Renal: History of: Dialysis, Renal Failure - Surgical History Additional Surgical History: Right upper extremity AV fistula - Family History Family History: Reports;: Family Hypertension - Social History Smoking Status: Current some day smoker Have you smoked in the last 12 months: Yes Time spent discussing smoking cessation with patient: 3 to 10 minutes Frequency of Alcohol Use: None Type of Drug Use: None Marital Status: Unknown Functional capacity: independent ambulation Review of systems: A 12 point review of systems is negative except as specified in the HPI Exam - Constitutional Vitals: Period Temp Pulse Resp BP Sys/Spencer Pulse Ox Last 24 Hr 97.9 F-97.9 F 68-72 20-26 166-205/62-96 91-98 Exam: EXAM: CONSTITUTIONAL: non toxic, NAD HEENT: NC, AT, OP benign, ISIDRO, EOMI CV: RRR + 2/6 systolic murmur left upper sternal border RESP: clear B/L, no w/r/r GI: abd soft, NT, ND, +bowel sounds INTEGUMENTARY: no lesions or rash, right upper extremity AV fistula with good thrill and bruit EXTREMITIES: no c/c/e NEURO: no focal deficits PSYCH: unremarkable, A/O x3 Results - Labs CBC & BMP: 08/15/16 23:05 08/15/16 23:05 Lab Results: I have reviewed the past 24 hour labs - EKG EKG shows: sinus rhythm - Diagnostic Findings Procedure: Chest x-ray: image reviewed by me
[2016-08-16] MEDS: HEPARIN 5,000 UNIT/1 ML VIAL SUBCUT SCH ×3 (04:34→18:28)
[2016-08-16 06:06] LABS: Basophils # 0.1 10*3/uL (0.0-0.2); Basophils % 0.6 % (0.0-0.8); Eosinophils # 0.3 10*3/uL (0.0-0.87); Eosinophils % 2.9 % (0.00-10.9); Hematocrit 37.1 VOL% (35.7-47.0); Hemoglobin 11.2 GM/DL (12.0-16.0); Immature Granulocytes % 0.6 %; Immature Granulocytes Absolute 0.06 #; Lymphocytes % 10.2 % (21.3-54.2); Mean Corpuscular HGB Conc 30.2 GM/DL (32-36); Mean Corpuscular Hemoglobin 29 PG (27-34); Mean Corpuscular Volume 94.9 FL (87-102); Mean Platelet Volume 12.2 FL (9.6-12.0); Monocytes # 0.5 10*3/uL (0.11-0.8); Monocytes % 5.1 % (1.7-12.7); Neutrophils # 8.1 10*3/uL (1.4-7.4); Neutrophils % 80.6 % (38.7-73.9); Platelet Count 138 T/CUMM (130-400); Red Blood Count 3.91 MC/CUMM (3.8-5.5); Red Cell Distribution Width 16.3 % (9.3-17.3)
[2016-08-16 06:14] LABS: Bilirubin,Total 1.2 MG/DL (0.2-1.0); Calcium 8.9 MG/DL (8.5-10.1); Osmolality,Calculated 289.4 MOS/KG (273-304); Potassium 4.6 MMOL/L (3.5-5.1); Total Protein 7.1 G/DL (6.4-8.3)
[2016-08-16] MEDS: MULTIVITAMIN (BEROCCA) TABLET PO SCH (08:41)
[2016-08-16] MEDS: MORPHINE ER 15 MG TABLET PO SCH ×2 (08:42→20:25)
[2016-08-16] MEDS: buPROPion SR 150 MG TABLET PO SCH ×2 (08:42→20:24)
[2016-08-16] MEDS: ASPIRIN EC 325 MG TABLET PO SCH (08:43)
[2016-08-16] MEDS: hydrALAZINE 25 MG TABLET PO SCH ×2 (08:43→20:25)
[2016-08-16] MEDS: METOCLOPRAMIDE 5 MG TABLET PO SCH ×4 (08:43→20:24)
[2016-08-16] MEDS: CETIRIZINE 10 MG TABLET PO SCH (08:43)
[2016-08-16] MEDS: FERROUS SULFATE 325 MG TABLET PO SCH (08:43)
[2016-08-16] MEDS: INSULIN REGULAR 100 UNIT/ML SUBCUT SCH ×4 (08:44→20:48)
[2016-08-16] MEDS: PANTOPRAZOLE 40 MG TABLET PO SCH (08:44)
--- NOTE | 2016-08-16 08:45 | EKG Report ---
Stationary ECG Study [facility] ER Test Date: 08/15/2016 10:39:02 PM Pat Name: DARREL LORENZO Department: Room: 535 Gender: F Fish [employer]er: : 1955 Requested by: Anita Carey Order Number: [id number] Reading MD: YUDITH VALE Intervals [place] Rate: 71 P: -34 IN: 171 QRS: 108 QRSD: 85 T: -29 QT: 363 QTc: 386 Interpretive Statements SINUS RHYTHM RIGHT AXIS DEVIATION LOW QRS VOLTAGE IN CHEST LEADS SEPTAL INFARCT, UNDETERMINED AGE Electronically Signed On 08-16-16 10:46:24 CDT by YUDITH VALE [email or web address]
--- NOTE | 2016-08-16 09:04 | XRay Report ---
Portable chest Date: 08/15/2016 Clinical history: Shortness of breath Comparison: 06/02/2016 Technique: Portable AP sitting chest Findings: Progressive cardiomegaly with the heart having a globular configuration. The pulmonary vasculature is more prominent with progressive parenchymal findings. Left subclavian atrioventricular permanent pacemaker. Degenerative changes are noted. Impression: The heart is larger in size with a globular configuration which can be seen with cardiomyopathy or pericardial effusion. Mild CHF. Left subclavian atrioventricular permanent pacemaker. PROCEDURE INTERPRETED AT [facility] DEPARTMENT OF RADIOLOGY Final Report Signed by: Dr. Raissa Fierro
--- NOTE | 2016-08-16 09:19 | XRay Report ---
Portable chest Date: 08/16/2016 Clinical history: Shortness of breath Comparison: 08/15/2016 Technique: Portable AP sitting chest Findings: Persistent cardiomegaly with left subclavian atrioventricular permanent pacemaker. Minimally reduced parenchymal findings. Persistent relative elevation of the right hemidiaphragm with degenerative changes. Post operative findings in the right axilla. Impression: Persistent cardiomegaly with left subclavian atrioventricular permanent pacemaker. Minimally improved mild CHF. PROCEDURE INTERPRETED AT [facility] DEPARTMENT OF RADIOLOGY Final Report Signed by: Dr. Raissa Fierro
[2016-08-16] MEDS ORDERED: LACTULOSE 20 GM/30 ML UDCUP PO PRN (10:02)
[2016-08-16] MEDS ORDERED: methylPREDNISolone SOD SUC 40 MG/1 ML VIAL ONE (11:24)
[2016-08-16] MEDS ORDERED: MORPHINE 2 MG/1 ML SYRINGE ONE (11:25)
[2016-08-16] MEDS ORDERED: FUROSEMIDE 40 MG/4 ML VIAL ONE (11:25)
--- NOTE | 2016-08-16 11:54 | ECHO Report ---
Ju Robison Exam Date: 08/16/2016 10:10 Referring Physician: Technologist: Randi Dial Age: 60 Ht (in): 64 Wt (lb): 165 Gender: F Exam Location: [facility] Echo Indications: DM, HTN, ESRD, CHF, SOB, elevated troponin, acute renal failure BP: 140 / 80 HR: 72 Rhythm: Sinus Technical Quality: good IMPRESSIONS Left ventricular ejection fraction is estimated at 50 %. Mild- moderate concentric left ventricular hypertrophy with Grade 2 diastolic dysfunction. There is paradoxical movement of the interventricular septum which may be due to the paced rhythm. Tricuspid regurgitation velocities suggest a RVSP of 46 mmHg. Three chamber cardiac enlargement MEASUREMENTS (Male / Female) Normal Values 2D ECHO LV Diastolic Diameter PLAX 3.1 cm 4.2 - 5.9 / 3.9 - 5.3 cm LV Systolic Diameter PLAX 1.7 cm LV Fractional Shortening PLAX 43.3 % IVS Diastolic Thickness 1.8 cm 0.6 - 1.0 / 0.6 - 0.9 cm LVPW Diastolic Thickness 1.2 cm 0.6 - 1.0 / 0.6 - 0.9 cm RV Internal Dim ED PLAX 3.1 cm Aortic Root Diameter 2.7 cm LA Systolic Diameter LX 4.2 cm 3.0 - 4.0 / 2.7 - 3.8 cm DOPPLER TR Peak Velocity 339.0 cm/s TR Peak Gradient 46.0 mmHg FINDINGS Left Ventricle Normal left ventricular cavity size. Mild- moderate concentric left ventricular hypertrophy with Grade 2 diastolic dysfunction. Left ventricular ejection fraction is estimated at 50 %. There is paradoxical movement of the interventricular septum which may be due to the paced rhythm. Right Ventricle There is right ventricular enlargement. There is flattening of the ventricular septum with both systole and diastole suggesting right- sided volume and pressure overload. There is a pacing wire seen in the right ventricle Right Atrium The right atrium is mildly enlarged. Left Atrium Moderately increased left atrial size. Mitral Valve Mild mitral valve sclerosis. Moderate mitral valve regurgitation. There is mild posterior mitral and calcification Aortic Valve Mild aortic valve sclerosis. Tricuspid Valve Morphologically normal tricuspid valve. Moderate tricuspid valve regurgitation. Tricuspid regurgitation velocities suggest a RVSP of 46 mmHg. Pulmonic Valve Morphologically normal pulmonic valve. Trace pulmonary valve regurgitation. Pericardium Trivial pericardial effusion. Aorta Normal size aortic root and proximal ascending aorta. Mary Rosas (Electronically Signed) Final Date: 16 August 2016 11:52
[2016-08-16] MEDS: POLYETHYLENE GLYCOL POWDER 17 GM PACK PO SCH (13:14)
--- NOTE | 2016-08-16 13:39 | Nephrology Consult Note ---
History of Present Illness Chief complaint: ESRD, S OB History of present illness: Ms. Robison is a 60 year old female with ESRD. She dialyzed on Wednesday. She reports a several day history of BEATTY. No chest pain. No fever or sputum production Home Medications Medication Instructions Recorded Confirmed Type Aspirin EC Tab 325 mg PO DAILY 06/02/16 08/16/16 History Cetirizine HCl 10 mg PO DAILY 06/02/16 08/16/16 History Cetirizine Tab [ZyrTEC Tab] 10 mg PO DAILY 06/02/16 08/16/16 History Ferrous Sulfate 325 mg PO DAILY 06/02/16 08/16/16 History Folic Acid/Vit B Complex and C 0.8 mg PO DAILY 06/02/16 08/16/16 History [Nephro-Lyssa Tablet] Furosemide Tab [Lasix Tab] 40 mg PO BID 06/02/16 08/16/16 History Hydrocodone/Acetaminophen 1 each PO Q12HR 06/02/16 08/16/16 History [Hydrocodon-Acetaminophn 10-325] Metoclopramide HCl 5 mg PO ACHS 06/02/16 08/16/16 History Morphine Sulfate [Morphine Sulfate 15 mg PO Q12HR 06/02/16 08/16/16 History ER] Zolpidem Tartrate 5 mg PO BEDTIME PRN 06/02/16 08/16/16 History buPROPion HCl [Bupropion HCl Sr] 150 mg PO BID 06/02/16 08/16/16 History hydrALAZINE TAB [Apresoline Tab] 25 mg PO BID 06/02/16 08/16/16 History hydrOXYzine HCl [Hydroxyzine HCl] 25 mg PO BID PRN 06/02/16 08/16/16 History traZODone [Desyrel] 100 mg PO BEDTIME 06/02/16 08/16/16 History Clindamycin HCl [Clindamycin Cap] 600 mg PO Q8HR #30 capsule 06/05/16 08/16/16 Rx Allergies Allergy/AdvReac Type Severity Reaction Status Date / Time No Known Allergies Allergy Verified 03/27/16 17:01 Medical,Surgical,& Family Hx - Medical History Cardio: History of: Hypertension, Pacemaker Psychological: History of: Depression Neurology: History of: Cerebrovascular Accident, Migraine HEENT: History of: Ear Problem Endocrine: History of: Diabetes Mellitus (NIDDM) Respiratory: History of: Asthma, Pneumonia Renal: History of: Dialysis, Renal Failure, Renal Problems (HD pt.) Gastrointestinal: History of: Hemorrhoids Musculoskeletal: History of: Back/Neck Problems Hematology: No history of: Blood Transfusion Reaction - Surgical History Cardiac Surgeries: Sugical HX of: Cardiac Catheterization Neurologic Surgeries: Patient denies: Neurologic Surgery Abdominal Surgeries: Patient denies: Abdominal Surgery Reproductive Surgeries: Patient denies;: Gynecologic Surgery Orthopedic Surgeries: Surgical HX of;: Implanted Devices (pacemaker) - Family History Family History: Reports;: Family Cancer (dad), Family Diabetes (mom dad sister) , Family Heart Disease (sister), Family Hypertension - Social History Smoking Status: Current some day smoker Frequency of Alcohol Use: None Type of Drug Use: None Review of Systems 12 point system: reviewed and no additional remarkable complaints except as stated Exam - Vital Signs Vital signs: Period Temp Pulse Resp BP Sys/Spencer Pulse Ox Last 24 Hr 97.8 F-98.3 F 67-74 18-26 140-205/62-96 91-98 Exam: Gen.: Alert and oriented x3. ENT: Pupils equal round reactive to light. EOMs intact. Mucous membranes moist. Neck: Supple. No JVD or bruit. Cardiovascular: Regular rate and rhythm. No murmur rub or gallop Lungs: Clear Abdomen: Soft. Nontender. Positive bowel sounds. No organomegaly Extremities: 2+ lower extremity edema Results - Labs CBC & BMP: 08/16/16 05:25 08/16/16 05:25 Assessment and Plan (1) ESRD (end stage renal disease) on dialysis Status: Chronic Assessment and plan: 60-year-old woman with: * ESRD. Dialysis tomorrow * Volume overload. This is mild. Dry weight will be decreased during dialysis tomorrow * Diabetes mellitus * Hypertension Current Visit: Yes (2) Volume overload Status: Acute Current Visit: Yes (3) Hypertension Status: Acute Current Visit: Yes Qualifiers: Hypertension type: essential hypertension Qualified Code(s): I10 - Essential (primary) hypertension (4) Type 2 diabetes mellitus Status: Acute Current Visit: Yes Qualifiers: Diabetes mellitus complication status: with unspecified complications Diabetes mellitus termite exterminator helper insulin use: without senior care use Qualified Code( s): E11.8 - Type 2 diabetes mellitus with unspecified complications
[2016-08-16] MEDS: BISACODYL 5 MG TABLET PO PRN (20:26)
[2016-08-16] MEDS ORDERED: traZODone 50 MG TABLET PO SCH (21:00)
[2016-08-17] MEDS: HEPARIN 5,000 UNIT/1 ML VIAL SUBCUT SCH ×2 (02:57→10:01)
[2016-08-17 04:26] LABS: Basophils # 0.1 10*3/uL (0.0-0.2); Basophils % 0.8 % (0.0-0.8); Eosinophils # 0.4 10*3/uL (0.0-0.87); Eosinophils % 6.4 % (0.00-10.9); Hematocrit 32.2 VOL% (35.7-47.0); Immature Granulocytes % 0.5 %; Immature Granulocytes Absolute 0.03 #; Lymphocytes % 16.1 % (21.3-54.2); Mean Corpuscular HGB Conc 31.1 GM/DL (32-36); Mean Corpuscular Hemoglobin 29 PG (27-34); Mean Corpuscular Volume 92.5 FL (87-102); Mean Platelet Volume 13.7 FL (9.6-12.0); Monocytes # 0.4 10*3/uL (0.11-0.8); Monocytes % 6.6 % (1.7-12.7); Neutrophils # 4.5 10*3/uL (1.4-7.4); Neutrophils % 69.6 % (38.7-73.9); Platelet Count 153 T/CUMM (130-400); Red Blood Count 3.48 MC/CUMM (3.8-5.5); Red Cell Distribution Width 16.3 % (9.3-17.3); White Blood Count 6.4 T/CUMM (4-12)
[2016-08-17 04:51] LABS: Magnesium 2.5 MG/DL (1.8-2.4); Osmolality,Calculated 288.7 MOS/KG (273-304); Potassium 5.1 MMOL/L (3.5-5.1)
--- NOTE | 2016-08-17 07:15 | Physician Query Form ---
CLICK EDIT DOCUMENT TO SELECT QUERY ANSWER --> OK --> SIGN Candice Kelsey RN, CCDS Certified Clinical Circuit Rider W) [phone] (f) [phone] [email or web address] PROVIDERS: Make your selection(s) from the choices in EACH section by typing an "x" and enter comments in the comment section. Please use your independent medical judgment in providing your response. This request does not imply that any particular answer is desired or expected. CLINICAL INDICATORS: (Providers should not edit this section) Patient admitted with SOB, CHF, ESRD, "Left ventricular ejection fraction is estimated at 50 %" AND the patient is a dialysis patient. Please provide further specificity regarding CHF. TYPE: ( ) Systolic (HFrEF - heart failure with reduced systolic function/EF) ( x) Diastolic (HFpEF - heart failure with preserved systolic function/EF) ( ) Combined Systolic/Diastolic ( ) Other, please specify: ( ) Clinically unable to determine ( ) The patient does NOT have CHF COMMENTS: PLEASE ALSO DOCUMENT RESPONSE IN PROGRESS NOTES AND/OR DISCHARGE SUMMARY Use of terms such as suspected, likely, or probable (associated with a specific diagnosis that is being evaluated, monitored, or treated as if it exists) are acceptable and can be restated in the discharge summary if not ruled out. MTDD
[2016-08-17] MEDS: INSULIN REGULAR 100 UNIT/ML SUBCUT SCH ×2 (07:30→10:44)
[2016-08-17 07:41] VITALS: BP 146/63
[2016-08-17] MEDS: buPROPion SR 150 MG TABLET PO SCH (08:08)
[2016-08-17] MEDS: METOCLOPRAMIDE 5 MG TABLET PO SCH ×2 (08:08→10:44)
[2016-08-17] MEDS: FERROUS SULFATE 325 MG TABLET PO SCH (08:09)
[2016-08-17] MEDS: MORPHINE ER 15 MG TABLET PO SCH (08:09)
[2016-08-17] MEDS: PANTOPRAZOLE 40 MG TABLET PO SCH (08:09)
[2016-08-17] MEDS: ASPIRIN EC 325 MG TABLET PO SCH (08:09)
[2016-08-17] MEDS: POLYETHYLENE GLYCOL POWDER 17 GM PACK PO SCH (08:09)
[2016-08-17] MEDS: CETIRIZINE 10 MG TABLET PO SCH (08:09)
[2016-08-17] MEDS: BISACODYL 5 MG TABLET PO PRN (08:09)
[2016-08-17] MEDS: MULTIVITAMIN (BEROCCA) TABLET PO SCH (08:09)
[2016-08-17] MEDS: hydrALAZINE 25 MG TABLET PO SCH (08:09)
[2016-08-17] MEDS ORDERED: IRON SUCROSE 100 MG/5 ML VIAL IV ONE (11:30)
--- NOTE | 2016-08-17 12:35 | Dialysis Note ---
Dialysis Note - Dialysis Note Ms. Robison is seen during her hemodialysis. We are removing 3-1/2 kg of volume today. This should result in her breathing better. She is not having any difficulty breathing on the dialysis machine and has a stable blood pressure. She should be able to be discharged following dialysis
--- NOTE | 2016-08-17 14:45 | Discharge Summary ---
Hospital Course - Hospital Course Hospital Course: Ms. Robison is a 60 year old female with end-stage renal disease on hemodialysis Wednesday, Wednesday, and Wednesday via right upper extremity AV fistula , hypertension, pacemaker, who is here with with a few days worsening SOB. Worse with exertion, she thought "pulling fluid off at dialysis," would make her feel better however she remained short of breath despite dialysis the previous day. She denied chest pain, fever, chills, cough, or hemoptysis. She makes very little if any urine. She also reported worsening bilateral lower extremity edema as well as abdominal bloating. She was admitted to the hospitalist service for acute CHF causing volume overload and sob. Patient underwent HD today with improvement in her shortness of breath. She has now reached maximal benefit of inpatient stay and will be discharged home. - Time spent with patient Time with patient DS: Less than 30 minutes (30) Diagnosis - Discharge Diagnosis (1) ESRD (end stage renal disease) on dialysis Status: Chronic (2) Acute CHF Status: Resolved (3) Hypertension Status: Chronic (4) Type 2 diabetes mellitus Status: Chronic (5) Volume overload Status: Resolved Discharge Plan - Discharge Data Disposition: Disch To Home/Self Care Condition at Discharge: Stable Discharge Diet: low salt diet Activity: increase activity as tolerated Hygiene: no restrictions Weight Bearing at Discharge: weight bear as tolerated Contact your physician if you experience:: fever over 101, Shortness of breath - Discharge Medications Continue buPROPion HCl [Bupropion HCl Sr] 150 mg PO BID Furosemide Tab [Lasix Tab] 40 mg PO BID Cetirizine Tab [ZyrTEC Tab] 10 mg PO DAILY Aspirin EC Tab 325 mg PO DAILY traZODone [Desyrel] 100 mg PO BEDTIME Cetirizine HCl 10 mg PO DAILY Morphine Sulfate [Morphine Sulfate ER] 15 mg PO Q12HR Folic Acid/Vit B Complex and C [Nephro-Lyssa Tablet] 0.8 mg PO DAILY Zolpidem Tartrate 5 mg PO BEDTIME PRN PRN Reason: Restlessness Metoclopramide HCl 5 mg PO ACHS Hydrocodone/Acetaminophen [Hydrocodon-Acetaminophn 10-325] 1 each PO Q12HR Ferrous Sulfate 325 mg PO DAILY hydrALAZINE TAB [Apresoline Tab] 25 mg PO BID hydrOXYzine HCl [Hydroxyzine HCl] 25 mg PO BID PRN PRN Reason: Itching Discontinued Clindamycin HCl [Clindamycin Cap] 600 mg PO Q8HR #30 capsule - Follow Up or Referral - Forms/Instructions Exam - Constitutional Vitals: Period Temp Pulse Resp BP Sys/Spencer Pulse Ox Last 24 Hr 97.6 F-97.9 F 65-75 16-20 146-198/63-78 90-98 General appearance: over weight - Head Head exam: Present: normocephalic, atraumatic - Eye Eye exam: Present: EOMI Pupils: Present: ISIDRO - ENT ENT exam: Present: normal exam - Neck Neck exam: Present: normal inspection - Respiratory Respiratory exam: Present: clear to auscultation bilaterally - Cardiovascular Cardiovascular exam: Present: regular rate and rhythm - GI/Abdominal GI/Abdominal exam: Present: normal bowel sounds, soft. Absent: tenderness, rebound - Extremities Exam Extremities exam: Present: normal inspection - Back Exam Back exam: Present: normal inspection - Neurological Exam Neurological exam: Present: alert, oriented X3 - Psychiatric Psychiatric exam: Present: normal affect, normal mood - Skin Skin exam: Present: warm, intact Discharge Results Labs on day of discharge: Labs from last 24 hours 08/17/16 08/17/16 08/16/16 03:21 03:21 20:01 WBC 6.4 D RBC 3.48 L Hgb 10.0 L Hct 32.2 L MCV 92.5 MCH 29 MCHC 31.1 L RDW 16.3 Plt Count 153 MPV 13.7 H Neut % (Auto) 69.6 Lymph % (Auto) 16.1 L [place] % (Auto) 6.6 Eos % (Auto) 6.4 Baso % (Auto) 0.8 Neut # (Auto) 4.5 Lymph # (Auto) 1.0 L [place] # (Auto) 0.4 Eos # (Auto) 0.4 Baso # (Auto) 0.1 Immature Gran % 0.5 Nucleated RBC % 0.0 Immature Gran # 0.03 Nucleated RBCs # 0.00 Sodium 138 Potassium 5.1 Chloride 102 Carbon Dioxide 31 Anion Gap 10.1 BUN 45 H D Creatinine 5.80 H GFR Calculation 9 BUN/Creatinine Ratio 7.00 Glucose 132 H POC Glucose 142 H Calculated Osmolality 288.7 Calcium 9.0 Magnesium 2.5 H 08/16/16 16:34 WBC RBC Hgb Hct MCV MCH MCHC RDW Plt Count MPV Neut % (Auto) Lymph % (Auto) [place] % (Auto) Eos % (Auto) Baso % (Auto) Neut # (Auto) Lymph # (Auto) [place] # (Auto) Eos # (Auto) Baso # (Auto) Immature Gran % Nucleated RBC % Immature Gran # Nucleated RBCs # Sodium Potassium Chloride Carbon Dioxide Anion Gap BUN Creatinine GFR Calculation BUN/Creatinine Ratio Glucose POC Glucose 152 H Calculated Osmolality Calcium Magnesium DS: Provider Date of admission: 08/16/16 02:28 Primary care physician: Vinny Verma Attending physician on admission: Carl Morton DO Consults: 08/16/16 02:28 Consult to Physician [CONS] Routine Comment: esrd-hd Consulting Provider: Real Monk Consult to Specialist Group: Nephrology When should Consulting Provider be notified: In am Person Notified: CHRISTOPHER Date Notified: 08/17/16 Time Notified: 09:02 Discharging clinician: Marjan Ozuna MD
== END 2016-08-17 16:15 | disposition home or self-care (01) | DRG 291 ==
LOC: N.ED 22:29 → SUATTDRO 08-16 02:28 → N.EDINP 08-16 02:28 → N.5E 08-16 02:55
PROVIDERS: ADMIT Internal Medicine; ATTEND Internal Medicine

== ENCOUNTER 2016-09-15 21:25 | Observation (INO) ==
[2016-09-15 23:40] LABS: Magnesium 2.4 MG/DL (1.8-2.4); Osmolality,Calculated 290.1 MOS/KG (273-304)
[2016-09-15 23:46] LABS: Potassium 6.3 MMOL/L (3.5-5.1)
[2016-09-15] MEDS ORDERED: CALCIUM GLUCONATE 1,000 MG in SODIUM CHLORIDE 0.9% 100 ML IV ONE (23:50)
[2016-09-15] MEDS ORDERED: SODIUM POLYSTYRENE SULFATE 15 GM/60 ML BOTTLE PO STA (23:50)
--- NOTE | 2016-09-16 00:04 | Emergency Department Note ---
Eliseo Sanders Brittany, am scribing for, and in the presence of, Dk Larkin MD 22 :05. Chaya Sanders Hans, MD, personally performed the services described in this documentation, ascribed by Stephanie Gomes in my presence, and it is both accurate and complete . Arrival - Arrival Chief Complaint: Extremity Problem Stated Complaint: Lower extremity swelling ED Nursing Triage Note: Pt states she has been having difficulty ambulating today. States she has been "dragging her leg." Denies other complaints. Mode of Arrival: Stretcher Limitations: No Limitations Source: Patient, RN Notes Reviewed Time Seen by Provider: 09/15/16 21:54 - History of Present Illness HPI Narrative: Patient is a 60 y/o black female presenting to the ED by EMS with c/o difficulty with ambulation that onset today. Patient reports that she's had some swelling of the BLE's that she believes to be the root of this. She is a dialysis patient and is normally dialyzed on Wednesday, Wednesday, and Wednesday, but she reports that she missed her appointment yesterday. Patient has had some back pain, but denies any abdominal pain or BLE pain. She states that she was able to ambulate normally yesterday, but today has been dragging her legs when walking. Patient has no other complaint/pain. Onset (ago): hour(s) Consistency: constant Allergies/Adverse Reactions: Allergies Allergy/AdvReac Type Severity Reaction Status Date / Time No Known Allergies Allergy Verified 03/27/16 17:01 Home Medications: Home Medications Medication Instructions Recorded Confirmed Type Aspirin EC Tab 325 mg PO DAILY 06/02/16 08/16/16 History Cetirizine HCl 10 mg PO DAILY 06/02/16 08/16/16 History Cetirizine Tab [ZyrTEC Tab] 10 mg PO DAILY 06/02/16 08/16/16 History Ferrous Sulfate 325 mg PO DAILY 06/02/16 08/16/16 History Folic Acid/Vit B Complex and C 0.8 mg PO DAILY 06/02/16 08/16/16 History [Nephro-Lyssa Tablet] Furosemide Tab [Lasix Tab] 40 mg PO BID 06/02/16 08/16/16 History Hydrocodone/Acetaminophen 1 each PO Q12HR 06/02/16 08/16/16 History [Hydrocodon-Acetaminophn 10-325] Metoclopramide HCl 5 mg PO ACHS 06/02/16 08/16/16 History Morphine Sulfate [Morphine Sulfate 15 mg PO Q12HR 06/02/16 08/16/16 History ER] Zolpidem Tartrate 5 mg PO BEDTIME PRN 06/02/16 08/16/16 History buPROPion HCl [Bupropion HCl Sr] 150 mg PO BID 06/02/16 08/16/16 History hydrALAZINE TAB [Apresoline Tab] 25 mg PO BID 06/02/16 08/16/16 History hydrOXYzine HCl [Hydroxyzine HCl] 25 mg PO BID PRN 06/02/16 08/16/16 History traZODone [Desyrel] 100 mg PO BEDTIME 06/02/16 08/16/16 History Cyclobenzaprine [Flexeril] 10 mg PO TID #20 tablet 09/14/16 Rx Review of System - Review of System 12 point system: reviewed and no additional remarkable complaints except as stated - Review of System Constitutional: Absent: chills, fever Eyes: Absent: vision change Head/Ears/Nose/Throat: Absent: nasal drainage, sore throat Respiratory: Absent: respiratory distress Cardiovascular: Present: edema (BLE). Absent: chest pain, palpitations Gastrointestinal: Absent: abdominal pain, nausea, vomiting, diarrhea, constipation Genitourinary female: Absent: dysuria, frequency, urgency Musculoskeletal: Present: other (difficulty with ambulation). Absent: arm pain , back pain, leg pain, neck pain Skin: Absent: rash Neurological: Absent: headache Psychiatric: Absent: anxiety, depression Medical,Surgical,& Family Hx - Medical History Cardio: History of: Hypertension, Pacemaker Psychological: History of: Depression Neurology: History of: Cerebrovascular Accident, Migraine HEENT: History of: Ear Problem Endocrine: History of: Diabetes Mellitus (NIDDM) Respiratory: History of: Asthma, Pneumonia Renal: History of: Dialysis, Renal Failure, Renal Problems (HD pt.) Gastrointestinal: History of: Hemorrhoids Musculoskeletal: History of: Back/Neck Problems Hematology: No history of: Blood Transfusion Reaction - Surgical History Cardiac Surgeries: Sugical HX of: Cardiac Catheterization Neurologic Surgeries: Patient denies: Neurologic Surgery Abdominal Surgeries: Patient denies: Abdominal Surgery Reproductive Surgeries: Patient denies;: Gynecologic Surgery Orthopedic Surgeries: Surgical HX of;: Implanted Devices (pacemaker) - Family History Family History: Reports;: Family Cancer (dad), Family Diabetes (mom dad sister) , Family Heart Disease (sister), Family Hypertension - Social History Smoking Status: Current some day smoker Frequency of Alcohol Use: None Type of Drug Use: None Exam Vital Signs: Vital Signs Temperature 97.3 F L 09/15/16 21:38 Pulse Rate 60 09/15/16 21:38 Respiratory Rate 18 09/15/16 21:38 Blood Pressure 137/52 09/15/16 21:38 O2 Sat by Pulse Oximetry 100 09/15/16 21:38 - General General appearance: alert, in no apparent distress - Head Head exam: Present: atraumatic, normocephalic, normal inspection - Eye Eye exam: Present: normal appearance, PERRL, EOMI - ENT ENT exam: Present: normal exam, normal oropharynx - Neck Neck exam: Present: normal inspection, full ROM, trachea midline - Chest Chest inspection: Present: normal inspection, symmetric chest wall rise - Respiratory Respiratory exam: Present: normal lung sounds bilaterally - Cardiovascular Cardiovascular exam: Present: regular rate, normal rhythm, normal heart sounds - Abdominal Exam Abdominal exam: Present: soft, normal bowel sounds. Absent: tenderness - Extremities Exam Extremities exam: Absent: normal inspection (woody edema to BLE; no cellulitis, erythema, or enduration) - Back Exam Back exam: Present: normal inspection - Neurological Exam Neurological exam: Present: alert, oriented X3, CN II-XII intact. Absent: motor sensory deficit - Psychiatric Psychiatric exam: Present: normal affect, normal mood - Skin Skin exam: Present: warm, dry Course Course Narrative: This patient was evaluated in the ER with a BMP that showed potassium of 6.3 with no significant acidosis. EKG showed no peak T waves. Patient had no shortness of breath so no x-ray was done. Due to the elevated potassium and noncompliance with dialysis the patient was admitted for dialysis in the a.m. and she was discussed with Dr. Gu. I also discussed her care with the hospitalist on-call who agreed to see her for admission she was given Kayexalate and IV calcium gluconate in the ER. Results - Labs CBC & BMP: 09/15/16 22:30 Lab Results: I have reviewed the patients labs Labs: Laboratory Tests 09/15/16 22:30 Sodium 135 L Potassium 6.3 H* Chloride 99 Carbon Dioxide 23 Anion Gap 19.3 H BUN 68 H Creatinine 7.80 H Glucose 109 H Calcium 8.0 L Disposition Clinical Impression: ESRD (end stage renal disease) on dialysis, Hyperkalemia Case discussed with: patient Disposition: Still a Patient Condition: Stable Time of Disposition: 00:04
[2016-09-16] MEDS ORDERED: CALCIUM GLUCONATE 1,000 MG/10 ML VIAL IV ONE (00:27)
[2016-09-16] MEDS ORDERED: SODIUM POLYSTYRENE SULFATE 15 GM/60 ML BOTTLE ONE (00:49)
--- NOTE | 2016-09-16 01:37 | Hospitalist History & Physical ---
Assessment and Plan (1) Volume overload Status: Resolved Assessment and plan: Patient is non compliant to her HD. She skips sessions for no tangible reason.She is breathing ok but very sleepy.Her legs are swollen up to her lower abdomen. Plan -Nephrology to dialyze in am -She was counseled to comply with her dialysis Hold all sedatives and pain meds bmp in am Current Visit: No (2) Hyperkalemia Status: Acute Assessment and plan: due to RF She has received kayexalate and Calcium gluconate Repeat levels Current Visit: Yes (3) ESRD (end stage renal disease) on dialysis Status: Chronic Assessment and plan: For HD in am. Nephrology has been consulted Current Visit: Yes (4) HTN (hypertension) Status: Acute Assessment and plan: stable Current Visit: Yes (5) Sleeping excessive Status: Acute Assessment and plan: will hold all sedatives and pain meds Current Visit: Yes (6) Type 2 diabetes mellitus Status: Chronic Assessment and plan: will place on SSC, accu cheks and get HbA1c level. 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 Robison is a 60 year old female with a history of ESRD on HD on Mondays, Wednesdays and Fridays. She is not compliant with her HD and skips sessions from time to time. Her last session was on Wednesday and decided not to report this week. Yesterday, she began to have difficulty with ambulation, her legs felt very heavy and were also swollen to the level of the thigh.There was no leg pain. She also developed some chest discomfort but no SOB, tightness or palpitations. She was have excessive sleepiness and was difficut to keep awake.She had no associated nausea, vomiting, fever, chills, or rigor. Upon arrival to the ER, labs showed a potassium of 6.3, BUN/CR- 68/7.8.She was started on Kayexalate, calcium Gluconate and the Entry Level Lab Technician Dr Gu was called from the ER and he wants to dialyze her in am. Home Medications Medication Instructions Recorded Confirmed Type Aspirin EC Tab 325 mg PO DAILY 04/11/17 06/25/17 History Cetirizine HCl 10 mg PO DAILY 06/02/16 08/16/16 History Cetirizine Tab [ZyrTEC Tab] 10 mg PO DAILY 06/02/16 08/16/16 History Ferrous Sulfate 325 mg PO DAILY 06/02/16 08/16/16 History Folic Acid/Vit B Complex and C 0.8 mg PO DAILY 06/02/16 08/16/16 History [Nephro-Lyssa Tablet] Furosemide Tab [Lasix Tab] 40 mg PO BID 06/02/16 08/16/16 History Hydrocodone/Acetaminophen 1 each PO Q12HR 06/02/16 08/16/16 History [Hydrocodon-Acetaminophn 10-325] Metoclopramide HCl 5 mg PO ACHS 06/02/16 08/16/16 History Morphine Sulfate [Morphine Sulfate 15 mg PO Q12HR 06/02/16 08/16/16 History ER] Zolpidem Tartrate 5 mg PO BEDTIME PRN 06/02/16 08/16/16 History buPROPion HCl [Bupropion HCl Sr] 150 mg PO BID 06/02/16 08/16/16 History hydrALAZINE TAB [Apresoline Tab] 25 mg PO BID 06/02/16 08/16/16 History hydrOXYzine HCl [Hydroxyzine HCl] 25 mg PO BID PRN 06/02/16 08/16/16 History traZODone [Desyrel] 100 mg PO BEDTIME 06/02/16 08/16/16 History Cyclobenzaprine [Flexeril] 10 mg PO TID #20 tablet 09/14/16 Rx Allergies Allergy/AdvReac Type Severity Reaction Status Date / Time No Known Allergies Allergy Verified 03/27/16 17:01 Medical,Surgical,& Family Hx - Medical History Cardio: History of: Hypertension, Pacemaker Psychological: History of: Depression Neurology: History of: Cerebrovascular Accident, Migraine HEENT: History of: Ear Problem Endocrine: History of: Diabetes Mellitus (NIDDM) Respiratory: History of: Asthma, Pneumonia Renal: History of: Dialysis, Renal Failure, Renal Problems (HD pt.) Gastrointestinal: History of: Hemorrhoids Musculoskeletal: History of: Back/Neck Problems Hematology: No history of: Blood Transfusion Reaction - Surgical History Cardiac Surgeries: Sugical HX of: Cardiac Catheterization Neurologic Surgeries: Patient denies: Neurologic Surgery Abdominal Surgeries: Patient denies: Abdominal Surgery Reproductive Surgeries: Patient denies;: Gynecologic Surgery Orthopedic Surgeries: Surgical HX of;: Implanted Devices (pacemaker) - Family History Family History: Reports;: Family Cancer (dad), Family Diabetes (mom dad sister) , Family Heart Disease (sister), Family Hypertension - Social History Smoking Status: Current some day smoker Frequency of Alcohol Use: None Type of Drug Use: None Exam - Constitutional Vitals: Period Temp Pulse Resp BP Sys/Spencer Pulse Ox Last 24 Hr 97.3 F-97.3 F 60-60 18-18 137-137/52-52 100 General appearance: no acute distress - Head Head exam: Present: normal inspection - Respiratory Respiratory exam: Present: decreased breath sounds - Cardiovascular Cardiovascular exam: Present: regular rate and rhythm - GI/Abdominal GI/Abdominal exam: Present: normal bowel sounds - Extremities Exam Extremities exam: Present: edema - Neurological Exam Neurological exam: Present: other (sleepy) Results - Labs CBC & BMP: 09/15/16 22:30 Lab Results: I have reviewed the past 24 hour labs
--- NOTE | 2016-09-16 02:27 | EKG Report ---
Stationary ECG Study [facility] ER Test Date: 09/15/2016 11:58:39 PM Pat Name: DARREL LORENZO Department: Room: Gender: F [employer] Teacher: : 1955 Requested by: Dk Larkin Order Number: [id number] Reading MD: YUDITH VALE Intervals [place] Rate: 60 P: -81 FL: 221 QRS: 19 QRSD: 91 T: -1 QT: 422 QTc: 422 Interpretive Statements ELECTRONIC ATRIAL PACEMAKER LOW QRS VOLTAGE POSSIBLE ANTERIOR MYOCARDIAL INFARCTION, PROBABLY OLD Electronically Signed On 09-16-16 12:52:52 CDT by YUDITH VALE [email or web address]
[2016-09-16] MEDS ORDERED: GLUCAGON 1 MG VIAL IM PRN (03:01)
[2016-09-16] MEDS ORDERED: DEXTROSE 50% 25 GM/50 ML VIAL IV PRN (03:01)
[2016-09-16 04:54] LABS: Basophils % 0.5 % (0.0-0.8); Eosinophils # 0.1 10*3/uL (0.0-0.87); Eosinophils % 1.7 % (0.00-10.9); Hematocrit 26.1 VOL% (35.7-47.0); Hemoglobin 8.6 GM/DL (12.0-16.0); Immature Granulocytes % 0.5 %; Immature Granulocytes Absolute 0.04 #; Lymphocytes # 0.9 10*3/uL (1.4-4.0); Lymphocytes % 11.5 % (21.3-54.2); Mean Corpuscular Hemoglobin 28 PG (27-34); Mean Corpuscular Volume 86.1 FL (87-102); Mean Platelet Volume 13.4 FL (9.6-12.0); Monocytes # 0.8 10*3/uL (0.11-0.8); Monocytes % 10.4 % (1.7-12.7); NRBC # 0.02 10*3/uL; Neutrophils # 5.9 10*3/uL (1.4-7.4); Neutrophils % 75.4 % (38.7-73.9); Platelet Count 148 T/CUMM (130-400); Red Blood Count 3.03 MC/CUMM (3.8-5.5); Red Cell Distribution Width 16.4 % (9.3-17.3); White Blood Count 7.9 T/CUMM (4-12)
[2016-09-16 05:23] LABS: Risk Ratio 2.83; VLDL CHOLESTEROL 18.4 MG/DL
[2016-09-16 05:37] LABS: Albumin 2.9 G/DL (3.4-5.0); Bilirubin,Total 1.3 MG/DL (0.2-1.0); Magnesium 2.6 MG/DL (1.8-2.4); Osmolality,Calculated 291.8 MOS/KG (273-304); Total Protein 6.7 G/DL (6.4-8.3)
[2016-09-16 05:40] LABS: Potassium 6.5 MMOL/L (3.5-5.1)
--- NOTE | 2016-09-16 06:50 | XRay Report ---
XR chest 1V portable Indication: Volume overload Comparison: 16 August 2016 Findings: The heart and mediastinum are stable in size and configuration. Pacemaker device is unchanged in position. The pulmonary vascularity is normal in caliber. No lung infiltrates, effusions, pneumothorax or other abnormality is demonstrated. Impression: No acute cardiopulmonary disease. PROCEDURE INTERPRETED AT [facility] DEPARTMENT OF RADIOLOGY Final Report Signed by: Dr. Edu Thompson
--- NOTE | 2016-09-16 08:42 | Nephrology Consult Note ---
History of Present Illness Chief complaint: Weakness and leg swelling History of present illness: Ms. Robison is a 60 year old female with end-stage renal disease who dialyzes on a Wednesday basis in [facility]. The patient presens with complaints of weakness and increased swelling in her legs the past week or 2. The patient states she has been getting progressively weaker and has noticed progressive swelling in her legs. The patient states that she missed dialysis this past Wednesday because she could not drive herself to dialysis and did not have any other way of getting there. The patient reports that she does get some cramps and occasionally feels dizzy on her dialysis sessions. Patient also has some sores on both lower extremities and had some venous surgery done for her leg swelling about 3 months ago. The patient denies shortness of breath. It sounds like patient does not have any paroxysmal nocturnal dyspnea. Review of the patient's echocardiogram done yesterday reveals moderate tricuspid regurgitation, moderate mitral valve regurgitation and elevated right ventricular systolic pressure of 47 mmHg. The patient also has 2+ diastolic dysfunction. The patient is also noted to have a significant anemia with a hematocrit of 26%. ROS: Head - denies headaches ENT - denies sore throat Lymphatics - denies lymphadenopathy Hematology - denies bleeding problems Heart - denies chest pain Lungs - denies shortness of breath Abdomen - denies abdominal pain Musculoskeletal - denies arthritis Skin - denies rash Neurology -positive stroke General - denies fever PE: General: in no acute distress Eyes: Pupils are round and reactive, conjunctivae are clear ENT: Nose is clear, O/P is benign Neck: Supple, no thyromegaly Lymphatics: No cervical, supraclavicular or axillary adenopathy Heart: Regular rate and rhythm, 2+ thigh edema Lungs: Clear to auscultation anteriorly, chest expansion symmetric Abdomen: Soft, normoactive bowel sounds, no hepatomegaly Musculoskeletal: No joint erythema or effusions or joint asymmetry Skin: Normal turgor, normal hydration, no rash Neuro/Psych: Alert and cooperative with fair insight Home Medications Medication Instructions Recorded Confirmed Type Aspirin EC Tab 325 mg PO DAILY 06/02/16 09/16/16 History Cetirizine HCl 10 mg PO DAILY 06/02/16 09/16/16 History Metoclopramide HCl 5 mg PO ACHS 06/02/16 09/16/16 History hydrALAZINE TAB [Apresoline Tab] 25 mg PO TID 06/02/16 09/16/16 History Amlodipine Besylate 10 mg PO DAILY 09/16/16 09/16/16 History Vit B Cmplx 3/Folic AC/C/Biot 1 each PO DAILY 09/16/16 09/16/16 History [Nephro-Lyssa Rx Tablet] Allergies Allergy/AdvReac Type Severity Reaction Status Date / Time No Known Allergies Allergy Verified 03/27/16 17:01 Medical,Surgical,& Family Hx - Medical History Cardio: History of: Hypertension, Pacemaker Psychological: History of: Depression Neurology: History of: Cerebrovascular Accident, Migraine No history of: Brain Aneurysm, Cerebral Hemorrhage, Cerebral Palsy, Dementia , Multiple Sclerosis, Parkinson's Disease, Peripheral Neuropathy, Seizures, TIA , Vertigo, Neurologocal Cancer HEENT: History of: Ear Problem Endocrine: History of: Diabetes Mellitus (NIDDM) Respiratory: History of: Asthma, Pneumonia No history of: Bronchitis, COPD, Intubation, Obstructive Sleep Apnea, Pulmonary Embolism, Pulmonary Hypertension, Lung Cancer, Respiratory Problems Renal: History of: Dialysis, Renal Failure, Renal Problems (HD pt.) Gastrointestinal: History of: Hemorrhoids Musculoskeletal: History of: Back/Neck Problems Hematology: No history of: Blood Transfusion Reaction - Surgical History Cardiac Surgeries: Sugical HX of: Cardiac Catheterization Thoracic Surgeries: Patient denies;: Lobectomy Neurologic Surgeries: Patient denies: Brain Aneurysm, Cerebral Hemorrhage, Neurologic Surgery Abdominal Surgeries: Patient denies: Abdominal Surgery Reproductive Surgeries: Patient denies;: Genitourinary Surgery, Gynecologic Surgery Orthopedic Surgeries: Surgical HX of;: Implanted Devices (pacemaker) - Family History Family History: Reports;: Family Cancer (dad), Family Diabetes (mom dad sister) , Family Heart Disease (sister), Family Hypertension - Social History Smoking Status: Current some day smoker Frequency of Alcohol Use: None Type of Drug Use: None Exam - Vital Signs Vital signs: Period Temp Pulse Resp BP Sys/Spencer Pulse Ox Last 24 Hr 97.3 F-99.0 F 60-70 16-27 131-153/44-69 96-100 Results - Labs CBC & BMP: 09/16/16 04:00 09/16/16 04:00 Assessment and Plan (1) ESRD (end stage renal disease) on dialysis Status: Chronic Assessment and plan: We will plan on hemodialysis today, will try and ultrafilter fluid off of her although this may prove difficult with her valvular heart disease and diastolic heart dysfunction. Current Visit: Yes (2) Anemia Status: Acute Assessment and plan: We will give her EPO on hemodialysis Current Visit: Yes (3) Secondary hyperparathyroidism Status: Acute Assessment and plan: We will continue her phosphate binder Current Visit: Yes (4) Valvular heart disease Status: Acute Current Visit: Yes (5) Pulmonary hypertension Status: Acute Current Visit: Yes (6) Diastolic dysfunction with heart failure Status: Acute Current Visit: Yes (7) HTN (hypertension) Status: Acute Assessment and plan: Continue her present antihypertensives Current Visit: Yes (8) Hyperkalemia Status: Acute Current Visit: Yes (9) Type 2 diabetes mellitus Status: Chronic Assessment and plan: Patient is not presently requiring any hypoglycemic therapy Current Visit: No Qualifiers: Diabetes mellitus complication status: with unspecified complications Diabetes mellitus rat exterminator insulin use: without rat exterminator use Qualified Code( s): E11.8 - Type 2 diabetes mellitus with unspecified complications (10) Volume overload Status: Resolved Assessment and plan: See #1 above Current Visit: No (11) Debility Status: Acute Assessment and plan: This patient has progressive weakness over the past several weeks. It is hard to envision her making great strides in this arena she may do well with a swing bed or [place] placement eventually. Current Visit: Yes
[2016-09-16] MEDS ORDERED: EPOETIN ALFA 10,000 UNIT/1 ML VIAL IV PRN (08:46)
[2016-09-16] MEDS: INSULIN REGULAR 100 UNIT/ML SUBCUT SCH ×4 (09:24→20:20)
[2016-09-16] MEDS: FUROSEMIDE 40 MG TABLET PO SCH ×2 (10:25→18:10)
[2016-09-16] MEDS: buPROPion SR 150 MG TABLET PO SCH ×2 (10:25→20:20)
[2016-09-16] MEDS: FERROUS SULFATE 325 MG TABLET PO SCH (10:25)
[2016-09-16] MEDS: MULTIVITAMIN (BEROCCA) TABLET PO SCH (10:25)
[2016-09-16] MEDS: ASPIRIN EC 325 MG TABLET PO SCH (10:26)
[2016-09-16] MEDS: hydrALAZINE 25 MG TABLET PO SCH ×2 (10:26→20:20)
[2016-09-16] MEDS: CETIRIZINE 10 MG TABLET PO SCH (10:26)
[2016-09-16] MEDS: ENOXAPARIN 30 MG/0.3 ML SYRINGE SUBCUT SCH (10:26)
--- NOTE | 2016-09-16 16:13 | Dialysis Note ---
Dialysis Note - Dialysis Note Patient seen on dialysis tolerated the procedure. Blood pressure noted to be 152/60. Cardiovascular is regular rate. Lungs clear to auscultation. Abdomen is soft.
[2016-09-17] MEDS: hydrALAZINE 25 MG TABLET PO SCH (08:43)
[2016-09-17] MEDS: ASPIRIN EC 325 MG TABLET PO SCH (08:43)
[2016-09-17] MEDS: MULTIVITAMIN (BEROCCA) TABLET PO SCH (08:43)
[2016-09-17] MEDS: CETIRIZINE 10 MG TABLET PO SCH (08:43)
[2016-09-17] MEDS: FERROUS SULFATE 325 MG TABLET PO SCH (08:43)
[2016-09-17] MEDS: FUROSEMIDE 40 MG TABLET PO SCH (08:43)
[2016-09-17] MEDS: buPROPion SR 150 MG TABLET PO SCH (08:43)
[2016-09-17] MEDS: ENOXAPARIN 30 MG/0.3 ML SYRINGE SUBCUT SCH (08:44)
[2016-09-17] MEDS: INSULIN REGULAR 100 UNIT/ML SUBCUT SCH ×2 (08:44→11:57)
[2016-09-17 10:00] LABS: Calcium 7.8 MG/DL (8.5-10.1)
[2016-09-17 10:01] LABS: Osmolality,Calculated 286.4 MOS/KG (273-304)
--- NOTE | 2016-09-17 11:03 | Discharge Summary ---
Hospital Course - Hospital Course Hospital Course: The patient was admitted to the hospital with shortness of breath. The patient' s potassium was elevated and creatinine was elevated. The patient had not been to dialysis for the last 5 days. After admission for observation the patient had dialysis later that day. The patient recovered overnight and is now ready for discharge home and continue outpatient dialysis 3 times weekly. The patient was evaluated by the gasoline power shovel operator during the hospitalization. The patient was screened for tobacco during the hospital stay. The patient was found to be a former smoker. I gave her 4 minutes tobacco avoidance education. On the date of discharge, the chest is clear and abdomen soft. Heart has regular rate and rhythm. Discharge time including evaluation of the patient, education, preparation of discharge documents, and discharge reconciliation of medications required 32 minutes. - Time spent with patient Time with patient DS: Greater than 30 minutes Diagnosis - Discharge Diagnosis (1) ESRD (end stage renal disease) on dialysis Status: Chronic (2) Type 2 diabetes mellitus Status: Chronic (3) Volume overload Status: Resolved Discharge Plan - Discharge Data Disposition: Disch To Home/Self Care Condition at Discharge: Stable Discharge Diet: advance to your usual diet Activity: resume usual activities as tolerated - Discharge Medications Continue Aspirin EC Tab 325 mg PO DAILY Cetirizine HCl 10 mg PO DAILY Metoclopramide HCl 5 mg PO ACHS Vit B Cmplx 3/Folic AC/C/Biot [Nephro-Lyssa Rx Tablet] 1 each PO DAILY hydrALAZINE TAB [Apresoline Tab] 25 mg PO TID Amlodipine Besylate 10 mg PO DAILY - Follow Up or Referral - Forms/Instructions Exam - Constitutional Vitals: Period Temp Pulse Resp BP Sys/Spencer Pulse Ox Last 24 Hr 97.8 F-98.8 F 62-94 16-20 149-168/63-70 92-97 Discharge Results Procedures and tests throughout hospitalization: Pending Orders 09/16/16 03:01 Urinalysis Routine Labs on day of discharge: Labs from last 24 hours 09/17/16 09/17/16 09/16/16 09:01 08:10 20:07 Sodium 140 Potassium 4.0 Chloride 97 L Carbon Dioxide 34 H Anion Gap 13.0 BUN 29 H Creatinine 4.90 H GFR Calculation 11 BUN/Creatinine Ratio 5.00 L Glucose 129 H POC Glucose 163 H 100 Calculated Osmolality 286.4 Calcium 7.8 L 09/16/16 10:53 Sodium Potassium Chloride Carbon Dioxide Anion Gap BUN Creatinine GFR Calculation BUN/Creatinine Ratio Glucose POC Glucose 139 H Calculated Osmolality Calcium DS: Provider Date of admission: 09/16/16 01:42 Primary care physician: Vinny Verma Attending physician on admission: Lori Aldridge MD Consults: 09/16/16 03:01 Consult to Physician [CONS] Routine Comment: esrd on hd Consulting Provider: Ángel Gu Consulting Provider Notified: Yes When should Consulting Provider be notified: Now Consult to Specialist Group: Nephrology When should Consulting Provider be notified: In am Person Notified: ONIEL Date Notified: 09/16/16 Time Notified: 08:35 09/16/16 03:49 Consult to Pastoral Services [CONS] Routine Comment: Pastoral Screen: Request Electro Mechanical Assembler Visit Pastoral Screen Source of Request: Other Other Source Requesting: Nursing Discharging clinician: Raman Soliz MD
[2016-09-17 11:49] VITALS: BP 157/67
== END 2016-09-17 15:00 | disposition home health service (06) ==
LOC: EDBD → EDUNIT# → N.EDINP 21:25 → N.ED 21:25 → SUATTDRO 09-16 01:42 → N.4E 09-16 02:36
PROVIDERS: ADMIT Internal Medicine; ATTEND Internal Medicine

== ENCOUNTER 2016-11-30 12:14 | Inpatient (IN) ==
[2016-11-30] MEDS ORDERED: FUROSEMIDE 100 MG/10 ML VIAL IV STA (12:48)
[2016-11-30] MEDS ORDERED: methylPREDNISolone SOD SUC 125 MG/2 ML VIAL IV STA (12:48)
[2016-11-30] MEDS ORDERED: ONDANSETRON 4 MG/2 ML VIAL IV STA (12:48)
[2016-11-30] MEDS ORDERED: MORPHINE 2 MG/1 ML SYRINGE IV STA (12:48)
[2016-11-30] MEDS ORDERED: ASPIRIN 325 MG TABLET PO STA (12:48)
[2016-11-30] MEDS ORDERED: ALBUTEROL 2.5 MG/3 ML NEB RESP TX SCH (13:00)
[2016-11-30 13:12] LABS: Basophils % 0.3 % (0.0-0.8); Eosinophils # 0.1 10*3/uL (0.0-0.87); Eosinophils % 0.8 % (0.00-10.9); Hematocrit 31.9 VOL% (35.7-47.0); Hemoglobin 10.2 GM/DL (12.0-16.0); Immature Granulocytes % 0.8 %; Immature Granulocytes Absolute 0.09 #; Lymphocytes # 0.8 10*3/uL (1.4-4.0); Mean Corpuscular Hemoglobin 29 PG (27-34); Mean Corpuscular Volume 91.7 FL (87-102); Mean Platelet Volume 12.3 FL (9.6-12.0); Monocytes # 1.1 10*3/uL (0.11-0.8); Monocytes % 9.1 % (1.7-12.7); Neutrophils # 9.5 10*3/uL (1.4-7.4); Platelet Count 253 T/CUMM (130-400); Red Blood Count 3.48 MC/CUMM (3.8-5.5); Red Cell Distribution Width 20.8 % (9.3-17.3); White Blood Count 11.6 T/CUMM (4-12)
[2016-11-30 13:28] LABS: ABG HCO3 27.2 MMOL/L (20-26); ABG PH 7.458 (7.35-7.45); ABG TCO2 24.4 MMOL/L (23-27); Allen Test Positive
[2016-11-30] MEDS ORDERED: MORPHINE 2 MG/1 ML SYRINGE ONE (13:29)
[2016-11-30] MEDS ORDERED: ASPIRIN 325 MG TABLET ONE (13:29)
[2016-11-30] MEDS ORDERED: FUROSEMIDE 100 MG/10 ML VIAL ONE ×2 (13:29→13:39)
[2016-11-30] MEDS ORDERED: methylPREDNISolone SOD SUC 125 MG/2 ML VIAL ONE (13:30)
[2016-11-30] MEDS ORDERED: ONDANSETRON 4 MG/2 ML VIAL ONE (13:30)
[2016-11-30 13:38] LABS: Albumin 3.3 G/DL (3.4-5.0); Bilirubin,Total 1.6 MG/DL (0.2-1.0); Calcium 9.9 MG/DL (8.5-10.1); Magnesium 2.2 MG/DL (1.8-2.4); Osmolality,Calculated 272.2 MOS/KG (273-304); Potassium 3.9 MMOL/L (3.5-5.1); Total Protein 8.3 G/DL (6.4-8.3)
[2016-11-30 13:39] LABS: Troponin I Only 0.071 NG/ML (0.00-0.045)
[2016-11-30 13:52] LABS: INR 1.2; PT Patient Result 12.4 SECS
--- NOTE | 2016-11-30 13:58 | XRay Report ---
Portable chest Date: 11/30/2016 Clinical history: Shortness of breath Comparison: 09/16/2016 Technique: Portable AP sitting chest Findings: Persistent cardiomegaly with left subclavian atrioventricular permanent pacemaker. More prominent pulmonary vasculature and perihilar lung markings extending to the lung bases. Small pleural effusions with findings larger on the left. Postoperative findings in the right axilla with degenerative changes. Impression: Cardiomegaly with left subclavian atrioventricular permanent pacemaker. [id number] CHF with findings more pronounced at the left lung base where it is difficult to exclude additional pleural-based pathology. Larger pleural effusions especially on the left. Follow-up recommended. PROCEDURE INTERPRETED AT [facility] DEPARTMENT OF RADIOLOGY Final Report Signed by: Dr. Raissa Fierro
--- NOTE | 2016-11-30 14:06 | Emergency Department Note ---
ITej Emily, am scribing for, and in the presence of, Charlie Grant MD 12: 53. Rudy Sanders Charles R, MD, personally performed the services described in this documentation, ascribed by Jen Burnham in my presence, and it is both accurate and complete . Arrival - Arrival Chief Complaint: Shortness of Breath Stated Complaint: shortness of breath ED Nursing Triage Note: c/o Having SOB since last night , states she went to dialysis today and the SOB became worse., patient brought in per EMS Mode of Arrival: Stretcher Limitations: No Limitations Source: Patient Time Seen by Provider: 11/30/16 12:34 - History of Present Illness HPI Narrative: Pt is a 61 y/o female who came to ED with c/o SOB that started last night. Pt dialyzed today and SOB got worse, but 100 sat in ED. She reports having orthopnea and could not sleep last night. Pt notes recently has had some bloating and swelling in abdomen. She currently has cough and cold sxs and makes no output. Onset (ago): day(s) Consistency: constant Severity: moderate Severity scale (1-10): 5 Quality: fullness Allergies/Adverse Reactions: Allergies Allergy/AdvReac Type Severity Reaction Status Date / Time No Known Allergies Allergy Verified 11/30/16 12:25 Home Medications: Home Medications Medication Instructions Recorded Confirmed Type Aspirin EC Tab 325 mg PO DAILY 06/02/16 09/16/16 History Cetirizine HCl 10 mg PO DAILY 06/02/16 09/16/16 History Metoclopramide HCl 5 mg PO ACHS 06/02/16 09/16/16 History hydrALAZINE TAB [Apresoline Tab] 25 mg PO TID 06/02/16 09/16/16 History Amlodipine Besylate 10 mg PO DAILY 09/16/16 09/16/16 History Vit B Cmplx 3/Folic AC/C/Biot 1 each PO DAILY 09/16/16 09/16/16 History [Nephro-Lyssa Rx Tablet] Review of System - Review of System 12 point system: reviewed and no additional remarkable complaints except as stated - Review of System Constitutional: Absent: chills, fever Respiratory: Present: cough (with cold), respiratory distress Cardiovascular: Present: orthopnea. Absent: chest pain Gastrointestinal: Absent: abdominal pain (bloating and swelling in abdomen), nausea, vomiting Skin: Absent: rash Medical,Surgical,& Family Hx - Medical History Cardio: History of: Hypertension, Pacemaker Psychological: History of: Depression Neurology: History of: Cerebrovascular Accident, Migraine No history of: Brain Aneurysm, Cerebral Hemorrhage, Cerebral Palsy, Dementia , Multiple Sclerosis, Parkinson's Disease, Peripheral Neuropathy, Seizures, TIA , Vertigo, Neurologocal Cancer HEENT: History of: Ear Problem Endocrine: History of: Diabetes Mellitus (NIDDM) Respiratory: History of: Asthma, Pneumonia No history of: Bronchitis, COPD, Intubation, Obstructive Sleep Apnea, Pulmonary Embolism, Pulmonary Hypertension, Lung Cancer, Respiratory Problems Renal: History of: Dialysis, Renal Failure, Renal Problems (HD pt.) Gastrointestinal: History of: Hemorrhoids Musculoskeletal: History of: Back/Neck Problems Hematology: No history of: Blood Transfusion Reaction - Surgical History Cardiac Surgeries: Sugical HX of: Cardiac Catheterization Thoracic Surgeries: Patient denies;: Lobectomy Neurologic Surgeries: Patient denies: Brain Aneurysm, Cerebral Hemorrhage, Neurologic Surgery Abdominal Surgeries: Patient denies: Abdominal Surgery Reproductive Surgeries: Patient denies;: Genitourinary Surgery, Gynecologic Surgery Orthopedic Surgeries: Surgical HX of;: Implanted Devices (pacemaker) - Family History Family History: Reports;: Family Cancer (dad), Family Diabetes (mom dad sister) , Family Heart Disease (sister), Family Hypertension - Social History Smoking Status: Current some day smoker Frequency of Alcohol Use: None Marital Status: Single Lives With:: Alone Functional capacity: independent ambulation Exam Vital Signs: Vital Signs Temperature 97.2 F L 11/30/16 12:21 Pulse Rate 85 11/30/16 14:10 Respiratory Rate 20 11/30/16 14:10 Blood Pressure 141/67 11/30/16 12:21 O2 Sat by Pulse Oximetry 99 11/30/16 14:10 - General General appearance: alert, in no apparent distress - Head Head exam: Present: atraumatic, normocephalic - Eye Eye exam: Present: PERRL, EOMI - ENT ENT exam: Present: mucous membranes moist. Absent: mucous membranes dry - Neck Neck exam: Present: full ROM - Chest Chest inspection: Present: symmetric chest wall rise - Respiratory Respiratory exam: Present: rales. Absent: normal lung sounds bilaterally - Cardiovascular Cardiovascular exam: Present: regular rate, normal rhythm, normal heart sounds - Abdominal Exam Abdominal exam: Present: soft. Absent: tenderness, guarding, rebound - Extremities Exam Extremities exam: Present: full ROM. Absent: pedal edema - Neurological Exam Neurological exam: Present: alert, oriented X3, CN II-XII intact - Psychiatric Psychiatric exam: Present: normal affect, normal mood - Skin Skin exam: Present: warm, dry Course - Reevaluation(s) Reevaluation #1: Patient reevaluated after breathing treatments patient sat 100% on 2 L but still complaining of shortness of breath and exertional dyspnea Time: 14:05 - Consultations Consultation #1: Spoke with hospitalist he said to consult nephrology Time: 14:05 Consultation #2: Spoke to Dr. Tejeda percussion welding machine operator on-call he said to admit the patient readjust dry weight to dialyze in the morning Time: 14:36 Consultation #3: Hospitalist will admit patient Time: 14:36 Results - Labs CBC & BMP: 11/30/16 12:25 11/30/16 12:25 Lab Results: I have reviewed the patients labs Labs: Laboratory Tests 11/30/16 11/30/16 11/30/16 12:25 12:25 12:25 WBC 11.6 RBC 3.48 L Hgb 10.2 L Hct 31.9 L RDW 20.8 H Plt Count 253 MPV 12.3 H Neut % (Auto) 82.0 H Lymph % (Auto) 7.0 L Neut # (Auto) 9.5 H Lymph # (Auto) 0.8 L Throckmorton # (Auto) 1.1 H ABG pH ABG pCO2 ABG pO2 ABG HCO3 ABG Total CO2 ABG O2 Saturation ABG Base Excess FiO2 Sodium 134 L Potassium 3.9 Chloride 92 L Anion Gap 17.9 H BUN 19 H Creatinine 3.40 H BUN/Creatinine Ratio 5.00 L Glucose 154 H Calculated Osmolality 272.2 L Total Bilirubin 1.60 H Troponin I 0.071 H B-Natriuretic Peptide 430 H Albumin 3.3 L Globulin 5.0 H Albumin/Globulin Ratio 0.6 L 11/30/16 13:18 WBC RBC Hgb Hct RDW Plt Count MPV Neut % (Auto) Lymph % (Auto) Neut # (Auto) Lymph # (Auto) Throckmorton # (Auto) ABG pH 7.458 H ABG pCO2 38.0 ABG pO2 257.0 H ABG HCO3 27.2 H ABG Total CO2 24.4 ABG O2 Saturation 100.0 ABG Base Excess 3.0 H FiO2 28.00 Sodium Potassium Chloride Anion Gap BUN Creatinine BUN/Creatinine Ratio Glucose Calculated Osmolality Total Bilirubin Troponin I B-Natriuretic Peptide Albumin Globulin Albumin/Globulin Ratio - Diagnostic Findings Procedure: Chest x-ray: report reviewed by me (Cardiomegaly with left subclavian atrioventricular permanent pacemaker. [id number] CHF with findings more pronounced at the left lung base where it is difficult to exclude additional pleural-based pathology. Larger pleural effusions especially on the left. Follow-up recommended.) Disposition Clinical Impression: Congestive heart failure, ESRD (end stage renal disease) on dialysis, Exertional dyspnea Case discussed with: patient, patient's family Disposition: Still a Patient Condition: Stable Time of Disposition: 14:06
--- NOTE | 2016-11-30 14:07 | Order Completion Report ---
See report scanned to EMR
--- NOTE | 2016-11-30 15:37 | Hospitalist History & Physical ---
<Aidee Kim - Last Filed: 11/30/16 15:17> Assessment and Plan - Time spent with patient Time spent with patient: Greater than 30 minutes (1) Exertional dyspnea Status: Acute Assessment and plan: Admit 11/30/16 supplemental oxygen - nasal cannula 2 liters - humidified Asthma hx: continue home medications; PRN duonebs CXR: Large Pleural Effusions (left shonna) - Consult IR - thoracentesis CRF: Dialysis: MWF - will consult renal (Dr Moctezuma) NIDDM: sliding scale, A1c ordered slight Elevated Troponin: 0.071 - will repeat cardiac enzymes BNP - [address] Herrera for further recommendations with care. Current Visit: Yes (2) Congestive heart failure Status: Acute Current Visit: Yes (3) ESRD (end stage renal disease) on dialysis Status: Chronic Current Visit: Yes (4) Elevated troponin Status: Acute Current Visit: No History of Present Illness Chief complaint: shortness of breath History of present illness: Ms. Robison is a 61 year old female w/PMHx HTN, NIDDM, PM, depression, CVA, Migraine, Asthma, CRF (dialysis MWF), Chronic neck presented to the ED for evaluation of worsening shortness of breath x3 weeks. She reports dialysis this morning but she is still short of breath. Denies fever, chills, cough, chest pain or tightness, nausea, or vomiting. IN ED: Sat 95% on Room air. LABS: H&H 10.2 & 31.9. ABG pH 7.458; pCO2 38.0, pO2 257.0; HCO3 27.2, Base Excess 3.0. Na 134. Chloride 92. Anion Gap 17.9. BUN 19. Creatinine 3.40. Glucose 154. Total Bilirubin 1.60. Troponin 0.071. BNP 430. CXR: cardiomegaly with left subclavian atrioventricular permanent pacemaker. [id number] CHF with findings more pronounced at the lung base. Large pleural effusions especially left. Denies alcohol or drug use. Smokes 2 cigarettes per month. Does not take Flu vaccine. She lives alone and uses walker and/or cane for ambulation. PCP: Dr Verma Cardiology: Dr Finley Renal: Dr Moctezuma After discussion with Dr Grant in ED and Dr Herrera with Hospital Medicine, it was agreed to admit patient for further evaluation. Home medications will be reviewed and reconciliation to follow. Code status was discussed and patient wants to be a FULL CODE. Home Medications Medication Instructions Recorded Confirmed Type Aspirin EC Tab 325 mg PO DAILY 06/02/16 09/16/16 History Cetirizine HCl 10 mg PO DAILY 06/02/16 09/16/16 History Metoclopramide HCl 5 mg PO ACHS 06/02/16 09/16/16 History hydrALAZINE TAB [Apresoline Tab] 25 mg PO TID 06/02/16 09/16/16 History Amlodipine Besylate 10 mg PO DAILY 09/16/16 09/16/16 History Vit B Cmplx 3/Folic AC/C/Biot 1 each PO DAILY 09/16/16 09/16/16 History [Nephro-Lyssa Rx Tablet] Allergies Allergy/AdvReac Type Severity Reaction Status Date / Time No Known Allergies Allergy Verified 11/30/16 12:25 Medical,Surgical,& Family Hx - Medical History Cardio: History of: Hypertension, Pacemaker Psychological: History of: Depression Neurology: History of: Cerebrovascular Accident, Migraine No history of: Brain Aneurysm, Cerebral Hemorrhage, Cerebral Palsy, Dementia , Multiple Sclerosis, Parkinson's Disease, Peripheral Neuropathy, Seizures, TIA , Vertigo, Neurologocal Cancer HEENT: History of: Ear Problem Endocrine: History of: Diabetes Mellitus (NIDDM) Respiratory: History of: Asthma, Pneumonia No history of: Bronchitis, COPD, Intubation, Obstructive Sleep Apnea, Pulmonary Embolism, Pulmonary Hypertension, Lung Cancer, Respiratory Problems Renal: History of: Dialysis, Renal Failure, Renal Problems (HD pt.) Gastrointestinal: History of: Hemorrhoids Musculoskeletal: History of: Back/Neck Problems Hematology: No history of: Blood Transfusion Reaction - Surgical History Cardiac Surgeries: Sugical HX of: Cardiac Catheterization Thoracic Surgeries: Patient denies;: Lobectomy Neurologic Surgeries: Patient denies: Brain Aneurysm, Cerebral Hemorrhage, Neurologic Surgery Abdominal Surgeries: Patient denies: Abdominal Surgery Reproductive Surgeries: Patient denies;: Genitourinary Surgery, Gynecologic Surgery Orthopedic Surgeries: Surgical HX of;: Implanted Devices (pacemaker) - Family History Family History: Reports;: Family Cancer (dad), Family Diabetes (mom dad sister) , Family Heart Disease (sister), Family Hypertension - Social History Smoking Status: Current some day smoker Frequency of Alcohol Use: None Marital Status: Single Lives With:: Alone Functional capacity: uses cane/walker 12 point system: reviewed and no additional remarkable complaints except as stated - Constitutional Constitutional: Absent: chills, fever(s) - Cardiovascular Cardiovascular: Present: dyspnea, dyspnea on exertion. Absent: chest pain at rest, chest pain with activity, edema - Respiratory Respiratory: Present: dyspnea, dyspnea on exertion. Absent: wheezing - Gastrointestinal Gastrointestinal: Absent: abdominal pain, bloating, nausea, vomiting Exam - Constitutional Vitals: Period Temp Pulse Resp BP Sys/Spencer Pulse Ox Last 24 Hr 97.2 F-97.2 F 73-116 16-20 106-153/50-84 99-100 General appearance: normal weight, mild distress - Head Head exam: Present: normal inspection - Eye Eye exam: Present: EOMI Pupils: Present: ISIDRO - Neck Neck exam: Present: normal inspection. Absent: thyromegaly - Respiratory Respiratory exam: Present: decreased breath sounds, rales. Absent: rhonchi, stridor, wheezes - Cardiovascular Cardiovascular exam: Present: regular rate and rhythm - GI/Abdominal GI/Abdominal exam: Present: normal bowel sounds, soft. Absent: firm, guarding, tenderness, rebound - Extremities Exam Extremities exam: Present: full ROM. Absent: edema - Neurological Exam Neurological exam: Present: alert, oriented X3, CN II-XII intact - Psychiatric Psychiatric exam: Present: normal affect, normal mood. Absent: agitated, anxious - Skin Skin exam: Present: normal color, warm, dry Results - Labs CBC & BMP: 11/30/16 12:25 11/30/16 12:25 Lab Results: I have reviewed the past 24 hour labs - Diagnostic Findings Procedure: Chest x-ray: report reviewed by me (Cardiomegaly with left subclavian atrioventricular permanent placement, mild to moderate CHF with findings pronounced at the left lung, large pleural effusions especially on the left, follow-up recommend) <Anthony Herrera - Last Filed: 11/30/16 16:10> History of Present Illness History of present illness: Ms. Robison is a 61 year old female who is being admitted to the hospital with acute on chronic congestive heart failure, large right pleural effusion, and end-stage renal disease on hemodialysis. I have interviewed and examined the patient and reviewed all available laboratory and radiographic test results. I agree with the assessment and plans of Aidee SEGOVIA. Ms. Robison is being admitted to the hospital. Nephrology has been consulted to manage her hemodialysis. Interventional radiology has been consulted for a thoracentesis of the large right pleural effusion. Exam - Constitutional Vitals: Period Temp Pulse Resp BP Sys/Spencer Pulse Ox Last 24 Hr 97.2 F-97.2 F 73-119 16-20 106-153/50-84 99-100 Results - Labs CBC & BMP: 11/30/16 12:25 11/30/16 12:25
[2016-11-30] MEDS ORDERED: ACETAMINOPHEN 325 MG TABLET PO PRN (15:50)
[2016-11-30] MEDS ORDERED: MORPHINE 2 MG/1 ML SYRINGE IV PRN (15:50)
[2016-11-30] MEDS ORDERED: ONDANSETRON 4 MG/2 ML VIAL IV PRN (15:50)
[2016-11-30] MEDS ORDERED: hydrALAZINE 20 MG/1 ML VIAL IV PRN (16:12)
[2016-11-30] MEDS ORDERED: BISACODYL 5 MG TABLET PO PRN (16:14)
[2016-11-30] MEDS ORDERED: POTASSIUM CHLORIDE 20 MEQ TABLET PO PRN (16:15)
[2016-11-30] MEDS ORDERED: amLODIPine 10 MG TABLET PO SCH (16:30)
--- NOTE | 2016-11-30 18:44 | Nephrology Consult Note ---
History of Present Illness Chief complaint: End-stage renal disease History of present illness: Ms. Robison is a 61 year old female with history of end-stage renal disease due to hypertension diabetes presented from dialysis unit complaining of shortness of breath. She completed her dialysis treatment with had approximately 4 L of fluid removed. She was evaluated here and found to have more shortness of breath. Patient follow-up chest x-ray shows evidence of a large pleural effusion on the left. She has been hemodynamically stable. She states her breathing has improved. Nephrology is been consulted for renal issues. There is been no change in medications. No fevers or chills. Home Medications Medication Instructions Recorded Confirmed Type Aspirin EC Tab 325 mg PO DAILY 06/02/16 09/16/16 History Cetirizine HCl 10 mg PO DAILY 06/02/16 09/16/16 History Metoclopramide HCl 5 mg PO ACHS 06/02/16 09/16/16 History hydrALAZINE TAB [Apresoline Tab] 25 mg PO TID 06/02/16 09/16/16 History Amlodipine Besylate 10 mg PO DAILY 09/16/16 09/16/16 History Vit B Cmplx 3/Folic AC/C/Biot 1 each PO DAILY 09/16/16 09/16/16 History [Nephro-Lyssa Rx Tablet] Allergies Allergy/AdvReac Type Severity Reaction Status Date / Time No Known Allergies Allergy Verified 11/30/16 12:25 Medical,Surgical,& Family Hx - Medical History Cardio: History of: Hypertension, Pacemaker Psychological: History of: Depression Neurology: History of: Cerebrovascular Accident, Migraine, TIA No history of: Brain Aneurysm, Cerebral Hemorrhage, Cerebral Palsy, Dementia , Multiple Sclerosis, Parkinson's Disease, Peripheral Neuropathy, Seizures, Vertigo, Neurologocal Cancer HEENT: History of: Ear Problem Endocrine: History of: Diabetes Mellitus (NIDDM) Respiratory: History of: Asthma, Pneumonia No history of: Bronchitis, COPD, Intubation, Obstructive Sleep Apnea, Pulmonary Embolism, Pulmonary Hypertension, Lung Cancer, Respiratory Problems Renal: History of: Dialysis, Renal Failure, Renal Problems (HD pt.) Gastrointestinal: History of: Hemorrhoids Musculoskeletal: History of: Back/Neck Problems Hematology: No history of: Blood Transfusion Reaction - Surgical History Cardiac Surgeries: Sugical HX of: Cardiac Catheterization Thoracic Surgeries: Patient denies;: Lobectomy Neurologic Surgeries: Patient denies: Brain Aneurysm, Cerebral Hemorrhage, Neurologic Surgery Abdominal Surgeries: Patient denies: Abdominal Surgery Reproductive Surgeries: Patient denies;: Genitourinary Surgery, Gynecologic Surgery Orthopedic Surgeries: Surgical HX of;: Implanted Devices (pacemaker) - Family History Family History: Reports;: Family Cancer (dad), Family Diabetes (mom dad sister) , Family Heart Disease (sister), Family Hypertension - Social History Smoking Status: Current some day smoker Frequency of Alcohol Use: None Type of Drug Use: None Review of Systems Constitutional: lethargy Cardiovascular: dyspnea, no chest pain at rest, no claudication, no diaphoresis Respiratory: dyspnea Gastrointestinal: bloating Exam - Vital Signs Vital signs: Period Temp Pulse Resp BP Sys/Spencer Pulse Ox Last 24 Hr 97.2 F-97.2 F 73-119 16-21 106-153/50-84 99-100 - General Appearance General appearance: fatigue, frail EENT: ATNC Neck: supple Respiratory: clear (Anterior decreased breath sounds on the left) Cardiology: regular rate, regular rhythm Gastrointestinal: normoactive bowel sounds, no tenderness, no guarding Integumentary: no rash Neurologic: alert and oriented x3 Musculoskeletal: no clubbing Psychiatric: mood/affect appropriate, cooperative Results - Labs CBC & BMP: 11/30/16 12:25 11/30/16 12:25 Assessment and Plan (1) Hypertension Status: Chronic Current Visit: No Qualifiers: Hypertension type: essential hypertension Qualified Code(s): I10 - Essential (primary) hypertension (2) HTN (hypertension) Status: Chronic Current Visit: No Qualifiers: Hypertension type: essential hypertension Qualified Code(s): I10 - Essential (primary) hypertension (3) Diastolic dysfunction with heart failure Status: Acute Current Visit: No (4) Exertional dyspnea Status: Chronic Current Visit: Yes (5) Pleural effusion Status: Acute Current Visit: Yes (6) Heart failure Status: Acute Current Visit: No
[2016-11-30] MEDS ORDERED: hydrALAZINE 25 MG TABLET PO SCH (21:00)
--- NOTE | 2016-11-30 23:10 | Order Completion Report ---
See report scanned to EMR
[2016-11-30] MEDS ORDERED: NITROGLYCERIN SL 0.4 MG TABLET SL ONE (23:26)
[2016-11-30] MEDS ORDERED: NITROGLYCERIN SL 0.4 MG TABLET SL PRN (23:29)
[2016-12-01] MEDS ORDERED: NITROGLYCERIN 2% OINT 1 INCH/GM PACK TOP SCH (00:11)
[2016-12-01] MEDS ORDERED: CLORAZEPATE 3.75 MG TABLET PO PRN (00:22)
--- NOTE | 2016-12-01 00:40 | Event Note ---
Called to a Heart Alert. Found patient sitting up in chair slightly tachypneic but even. Patient can speak in full sentences and is on 2LPM per NC. Lung sounds CTA all goetz. Symmetrical rise and fall of chest noted. JVD noted. Nurses had paged earlier in the night for intermittent chest pain that was waxing and waning. Troponin and EKG was obtained. Troponin was decreased from previous one and EKG showed A-fib with a HR of 101 which remained unchanged from previous EKGs. Patient is now complaining of pain in her left breast that does not radiate and feels like pressure. Obvious shortness of breath but denies n/v/d. Patient is not diaphoretic. SL Nitro given which did improve patient's pain. She was moved to the telemetry floor. We will continue to trend her troponins and EKG. Upon reassessment of patient, she was sitting up in chair feeling much better. She was asking for water. Will order Tranxene PRN for anxiety as this looks like it might be a component due to the quick resolution.
[2016-12-01 05:53] LABS: Albumin 3.2 G/DL (3.4-5.0); Bilirubin,Total 2.9 MG/DL (0.2-1.0); Magnesium 2.7 MG/DL (1.8-2.4); Osmolality,Calculated 272.1 MOS/KG (273-304); Potassium 4.8 MMOL/L (3.5-5.1)
[2016-12-01] MEDS ORDERED: DEXTROSE 50% 25 GM/50 ML VIAL IV ONE ×2 (06:03→09:13)
[2016-12-01 06:31] LABS: Hepatitis A Ab IgM Quant 0.13 Index; Hepatitis A Ab IgM Result Negative (Negative); Hepatitis B Core IgM Quant 0.11 Index; Hepatitis B Core IgM Result Negative (Negative); Hepatitis B Surface Ag Quant 0.28 Index; Hepatitis B Surface Ag Result Negative (Negative); Hepatitis C Virus Ab Quant > 11.00 Index; Hepatitis C Virus Ab Result Positive (Negative)
[2016-12-01 07:12] LABS: Basophils % 0.1 % (0.0-0.8); Eosinophils % 0.1 % (0.00-10.9); Hematocrit 33.4 VOL% (35.7-47.0); Immature Granulocytes % 1.7 %; Immature Granulocytes Absolute 0.29 #; Lymphocytes # 0.7 10*3/uL (1.4-4.0); Lymphocytes % 4.2 % (21.3-54.2); Mean Corpuscular HGB Conc 29.9 GM/DL (32-36); Mean Corpuscular Hemoglobin 30 PG (27-34); Mean Corpuscular Volume 101.5 FL (87-102); Mean Platelet Volume 12.6 FL (9.6-12.0); Monocytes # 1.5 10*3/uL (0.11-0.8); Monocytes % 8.5 % (1.7-12.7); NRBC # 0.08 10*3/uL; Neutrophils # 14.5 10*3/uL (1.4-7.4); Neutrophils % 85.4 % (38.7-73.9); Platelet Count 277 T/CUMM (130-400); Red Blood Count 3.29 MC/CUMM (3.8-5.5); Red Cell Distribution Width 21.4 % (9.3-17.3)
[2016-12-01 07:30] LABS: Band Neutrophils 3 % (0-10); Lymphocytes 5 % (20-55); Segmented Neutrophils 89 % (50-85); Total Cells Counted 100
[2016-12-01 07:31] LABS: Hypochromasia 1+; Macrocytosis 1+; Polychromasia Slight
[2016-12-01 07:32] LABS: Platelet Estimate Normal
[2016-12-01 07:56] VITALS: BP 107/55
--- NOTE | 2016-12-01 08:28 | XRay Report ---
Portable chest Date: 11/30/2016 Clinical history: Chest pain Comparison: 11/30/2016 Technique: Portable AP sitting chest Findings: Persistent cardiomegaly with left subclavian atrioventricular pacemaker. Prominent pulmonary vasculature. Limited expiratory chest with diffuse parenchymal findings at the lung bases with stable pleural effusions. Findings remain more prominent on the left. Post operative findings. Stable mediastinum and osseous structures. Impression: Persistent cardiomegaly with left subclavian atrioventricular permanent pacemaker. Persistent CHF with findings more pronounced at the left lung base where again it is difficult to exclude additional pleural-based pathology. Stable pleural effusions. Lateral decubitus chest x-rays may be helpful to determine how much free fluid is present. PROCEDURE INTERPRETED AT [facility], [place] DEPARTMENT OF RADIOLOGY Final Report Signed by: Dr. Raissa Fierro
[2016-12-01] MEDS ORDERED: PANTOPRAZOLE 40 MG TABLET PO SCH (09:00)
[2016-12-01] MEDS ORDERED: ASPIRIN EC 81 MG TABLET PO SCH (09:00)
--- NOTE | 2016-12-01 10:31 | Event Note ---
Patient experienced a cardiopulmonary arrest. Cardiopulmonary resuscitation utilizing ACLS protocol was attempted unsuccessfully. Patient at 10:25 AM.
--- NOTE | 2016-12-01 10:34 | Discharge Summary ---
Hospital Course - Hospital Course Hospital Course: Ms. Robison is a 61 year old female w/PMHx HTN, NIDDM, PM, depression, CVA, Migraine, Asthma, CRF (dialysis MWF), Chronic neck presented to the ED for evaluation of worsening shortness of breath x3 weeks. She reports dialysis this morning but she is still short of breath. Denies fever, chills, cough, chest pain or tightness, nausea, or vomiting. IN ED: Sat 95% on Room air. LABS: H&H 10.2 & 31.9. ABG pH 7.458; pCO2 38.0, pO2 257.0; HCO3 27.2, Base Excess 3.0. Na 134. Chloride 92. Anion Gap 17.9. BUN 19. Creatinine 3.40. Glucose 154. Total Bilirubin 1.60. Troponin 0.071. BNP 430. CXR: cardiomegaly with left subclavian atrioventricular permanent pacemaker. [id number] CHF with findings more pronounced at the lung base. Large pleural effusions especially left. Patient was admitted to the hospital with acute on chronic congestive heart failure, large pleural effusions, and end-stage renal disease on hemodialysis. Nephrology was consulted for management of her hemodialysis. Interventional radiology was consulted to perform a thoracentesis. Before the thoracentesis could be performed, she experienced an acute cardiopulmonary arrest. Cardiopulmonary resuscitation utilizing ACLS protocol was attempted unsuccessfully. Patient at 10:25 AM on 12/01/16. Diagnosis - Discharge Diagnosis (1) Cardiopulmonary arrest Status: Acute (2) ESRD (end stage renal disease) on dialysis Status: Chronic (3) Type 2 diabetes mellitus Status: Chronic (4) Congestive heart failure Status: Acute (5) Pleural effusion Status: Acute Discharge Plan - Discharge Medications No Action Aspirin EC Tab 325 mg PO DAILY Metoclopramide HCl 5 mg PO ACHS Vit B Cmplx 3/Folic AC/C/Biot [Nephro-Lyssa Rx Tablet] 1 each PO DAILY Hydrocodone/Acetaminophen [Hydrocodon-Acetaminophn 10-325] 1 tablet PO Q6HR PRN PRN Reason: Pain Sertraline HCl [Sertraline HCl] 50 mg PO DAILY hydrALAZINE TAB [Apresoline Tab] 25 mg PO TID Amlodipine Besylate 10 mg PO DAILY - Follow Up or Referral - Forms/Instructions Exam - Constitutional Vitals: Period Temp Pulse Resp BP Sys/Spencer Pulse Ox Last 24 Hr 96.0 F-97.9 F 63-125 16-32 93-153/50-84 93-100 Discharge Results Procedures and tests throughout hospitalization: Pending Orders 11/30/16 15:55 IR thoracentesis aspiration Stat 12/01/16 09:29 Glucose Stat Labs on day of discharge: Labs from last 24 hours 12/01/16 12/01/16 12/01/16 09:37 09:10 07:40 WBC RBC Hgb Hct MCV MCH MCHC RDW Plt Count MPV Neut % (Auto) Lymph % (Auto) [place] % (Auto) Eos % (Auto) Baso % (Auto) Neut # (Auto) Lymph # (Auto) [place] # (Auto) Eos # (Auto) Baso # (Auto) Total Counted Immature Gran % Nucleated RBC % Immature Gran # Segmented Neutrophils Band Neutrophils Lymphocytes Monocytes Nucleated RBCs # Platelet Estimate Immature Plt Fraction Polychromasia Hypochromasia Macrocytosis Morphology Comment INR PT Patient/Control Mix ABG pH ABG pCO2 ABG pO2 ABG HCO3 ABG Total CO2 ABG O2 Saturation ABG Base Excess FiO2 Sodium Potassium Chloride Carbon Dioxide Anion Gap BUN Creatinine GFR Calculation BUN/Creatinine Ratio Glucose POC Glucose 48 L* 82 Hemoglobin A1c Calculated Osmolality Calcium Magnesium Total Bilirubin AST ALT Alkaline Phosphatase Troponin I 0.106 H D B-Natriuretic Peptide Total Protein Albumin Globulin Albumin/Globulin Ratio Hepatitis A IgM Ab Hep Bs Antigen Hep B Core IgM Ab Hepatitis C Antibody 12/01/16 12/01/16 12/01/16 06:36 06:10 06:03 WBC RBC Hgb Hct MCV MCH MCHC RDW Plt Count MPV Neut % (Auto) Lymph % (Auto) [place] % (Auto) Eos % (Auto) Baso % (Auto) Neut # (Auto) Lymph # (Auto) [place] # (Auto) Eos # (Auto) Baso # (Auto) Total Counted Immature Gran % Nucleated RBC % Immature Gran # Segmented Neutrophils Band Neutrophils Lymphocytes Monocytes Nucleated RBCs # Platelet Estimate Immature Plt Fraction Polychromasia Hypochromasia Macrocytosis Morphology Comment INR PT Patient/Control Mix ABG pH ABG pCO2 ABG pO2 ABG HCO3 ABG Total CO2 ABG O2 Saturation ABG Base Excess FiO2 Sodium Potassium Chloride Carbon Dioxide Anion Gap BUN Creatinine GFR Calculation BUN/Creatinine Ratio Glucose 186 H POC Glucose 274 H < 20 L* Hemoglobin A1c Calculated Osmolality Calcium Magnesium Total Bilirubin AST ALT Alkaline Phosphatase Troponin I B-Natriuretic Peptide Total Protein Albumin Globulin Albumin/Globulin Ratio Hepatitis A IgM Ab Hep Bs Antigen Hep B Core IgM Ab Hepatitis C Antibody 12/01/16 12/01/16 12/01/16 05:00 05:00 05:00 WBC RBC Hgb Hct MCV MCH MCHC RDW Plt Count MPV Neut % (Auto) Lymph % (Auto) [place] % (Auto) Eos % (Auto) Baso % (Auto) Neut # (Auto) Lymph # (Auto) [place] # (Auto) Eos # (Auto) Baso # (Auto) Total Counted Immature Gran % Nucleated RBC % Immature Gran # Segmented Neutrophils Band Neutrophils Lymphocytes Monocytes Nucleated RBCs # Platelet Estimate Immature Plt Fraction Polychromasia Hypochromasia Macrocytosis Morphology Comment INR PT Patient/Control Mix ABG pH ABG pCO2 ABG pO2 ABG HCO3 ABG Total CO2 ABG O2 Saturation ABG Base Excess FiO2 Sodium 135 L Potassium 4.8 Chloride 92 L Carbon Dioxide 13 L Anion Gap 34.8 H BUN 33 H D Creatinine 4.70 H GFR Calculation 12 BUN/Creatinine Ratio 7.00 Glucose 20 L* POC Glucose Hemoglobin A1c 4.6 Calculated Osmolality 272.1 L Calcium 10.0 Magnesium 2.7 H Total Bilirubin 2.90 H AST 69 H ALT 20 Alkaline Phosphatase 106 Troponin I B-Natriuretic Peptide 519 H Total Protein 8.0 Albumin 3.2 L Globulin 4.8 H Albumin/Globulin Ratio 0.6 L Hepatitis A IgM Ab Hep Bs Antigen Hep B Core IgM Ab Hepatitis C Antibody 12/01/16 12/01/16 12/01/16 05:00 05:00 05:00 WBC 17.0 H D RBC 3.29 L Hgb 10.0 L Hct 33.4 L MCV 101.5 MCH 30 MCHC 29.9 L RDW 21.4 H Plt Count 277 MPV 12.6 H Neut % (Auto) 85.4 H Lymph % (Auto) 4.2 L [place] % (Auto) 8.5 Eos % (Auto) 0.1 Baso % (Auto) 0.1 Neut # (Auto) 14.5 H Lymph # (Auto) 0.7 L [place] # (Auto) 1.5 H Eos # (Auto) 0.0 Baso # (Auto) 0.0 Total Counted 100 Immature Gran % 1.7 Nucleated RBC % 0.5 Immature Gran # 0.29 Segmented Neutrophils 89 H Band Neutrophils 3 Lymphocytes 5 L Monocytes 3 Nucleated RBCs # 0.08 Platelet Estimate Normal Immature Plt Fraction 10.4 H Polychromasia Slight Hypochromasia 1+ Macrocytosis 1+ Morphology Comment INR PT Patient/Control Mix ABG pH ABG pCO2 ABG pO2 ABG HCO3 ABG Total CO2 ABG O2 Saturation ABG Base Excess FiO2 Sodium Potassium Chloride Carbon Dioxide Anion Gap BUN Creatinine GFR Calculation BUN/Creatinine Ratio Glucose POC Glucose Hemoglobin A1c Calculated Osmolality Calcium Magnesium Total Bilirubin AST ALT Alkaline Phosphatase Troponin I 0.072 H B-Natriuretic Peptide Total Protein Albumin Globulin Albumin/Globulin Ratio Hepatitis A IgM Ab Negative Hep Bs Antigen Negative Hep B Core IgM Ab Negative Hepatitis C Antibody Positive A 11/30/16 11/30/16 11/30/16 21:57 13:18 12:25 WBC RBC Hgb Hct MCV MCH MCHC RDW Plt Count MPV Neut % (Auto) Lymph % (Auto) [place] % (Auto) Eos % (Auto) Baso % (Auto) Neut # (Auto) Lymph # (Auto) [place] # (Auto) Eos # (Auto) Baso # (Auto) Total Counted Immature Gran % Nucleated RBC % Immature Gran # Segmented Neutrophils Band Neutrophils Lymphocytes Monocytes Nucleated RBCs # Platelet Estimate Immature Plt Fraction Polychromasia Hypochromasia Macrocytosis Morphology Comment INR PT Patient/Control Mix ABG pH 7.458 H ABG pCO2 38.0 ABG pO2 257.0 H ABG HCO3 27.2 H ABG Total CO2 24.4 ABG O2 Saturation 100.0 ABG Base Excess 3.0 H FiO2 28.00 Sodium Potassium Chloride Carbon Dioxide Anion Gap BUN Creatinine GFR Calculation BUN/Creatinine Ratio Glucose POC Glucose Hemoglobin A1c Calculated Osmolality Calcium Magnesium Total Bilirubin AST ALT Alkaline Phosphatase Troponin I 0.061 H B-Natriuretic Peptide 430 H Total Protein Albumin Globulin Albumin/Globulin Ratio Hepatitis A IgM Ab Hep Bs Antigen Hep B Core IgM Ab Hepatitis C Antibody 11/30/16 11/30/16 11/30/16 12:25 12:25 12:25 WBC 11.6 RBC 3.48 L Hgb 10.2 L Hct 31.9 L MCV 91.7 MCH 29 MCHC 32.0 RDW 20.8 H Plt Count 253 MPV 12.3 H Neut % (Auto) 82.0 H Lymph % (Auto) 7.0 L [place] % (Auto) 9.1 Eos % (Auto) 0.8 Baso % (Auto) 0.3 Neut # (Auto) 9.5 H Lymph # (Auto) 0.8 L [place] # (Auto) 1.1 H Eos # (Auto) 0.1 Baso # (Auto) 0.0 Total Counted Immature Gran % 0.8 Nucleated RBC % 0.0 Immature Gran # 0.09 Segmented Neutrophils Band Neutrophils Lymphocytes Monocytes Nucleated RBCs # 0.00 Platelet Estimate Immature Plt Fraction 0.0 Polychromasia Hypochromasia Macrocytosis Morphology Comment INR 1.2 PT Patient/Control Mix 12.4 ABG pH ABG pCO2 ABG pO2 ABG HCO3 ABG Total CO2 ABG O2 Saturation ABG Base Excess FiO2 Sodium 134 L Potassium 3.9 Chloride 92 L Carbon Dioxide 28 Anion Gap 17.9 H BUN 19 H Creatinine 3.40 H GFR Calculation 17 BUN/Creatinine Ratio 5.00 L Glucose 154 H POC Glucose Hemoglobin A1c Calculated Osmolality 272.2 L Calcium 9.9 Magnesium 2.2 Total Bilirubin 1.60 H AST 31 ALT 15 Alkaline Phosphatase 106 Troponin I 0.071 H B-Natriuretic Peptide Total Protein 8.3 Albumin 3.3 L Globulin 5.0 H Albumin/Globulin Ratio 0.6 L Hepatitis A IgM Ab Hep Bs Antigen Hep B Core IgM Ab Hepatitis C Antibody DS: Provider Date of admission: 11/30/16 14:50 Primary care physician: Vinny Verma Attending physician on admission: Anthony Herrera Consults: 11/30/16 15:50 Consult to Physician [CONS] Routine Comment: Consulting Provider: Gordon Moctezuma Jr. When should Consulting Provider be notified: Now Person Notified: herman Date Notified: 11/30/16 Time Notified: 16:09 Consult Notification Comment: dialysis MWF - she did complete diaylsis today - but remained SOB consulting IR for large pleural effusion Thank You 11/30/16 15:52 Consult to Case Mgmt/Social Srvs [CONS] Routine Reason for Case Mgmt/Social Srvs: Discharge Planning Discharging clinician: Anthony Herrera
--- NOTE | 2016-12-01 12:19 | Event Note ---
ER procedure note: Called to the telemetry floor for a CODE BLUE 61-year-old black female dialysis patient who was found unresponsive no spontaneous breath sounds with a pacemaker. ACLS protocol started patient was coded by the hospitalist I provided airway resuscitation. Patient intubated by me first attempt was successful using a 7.5 ET tube using a MAC 4 blade visualize to go to the vocal cords good positive end CO2 color change. The code was later turned over to the hospitalist in grave condition
== END 2016-12-01 10:21 | disposition expired | DRG 291 ==
LOC: EDUNIT# → EDBD → N.ED 12:14 → N.EDINP 14:50 → N.2E 15:20 → N.TELES 12-01 00:25